=== PATIENT | female | born 1930 | race Caucasian/White ===

== ENCOUNTER 2017-09-22 05:47 | Inpatient (IN) | payer MEDICARE, OTHER ==
[~2017-09-22] VITALS: Ht 162.6 cm; Wt 60.8 kg
[~2017-09-22 05:47] MED LIST: ADULT LOW DOSE81 MG PO; AMARYL2 MG PO; AMBIEN 5 MG TABL5 M1; AMBIEN 5 MG TABL5 M1 PO; APAP650 PO; ASPIR 8181 MG PO; ATORVASTATIN CA40 MG PO; BACTRIM DS TAB1 EACH PO; CARDIZEM CD180 MG PO; CARVEDILOL12.5 MG PO; CLONAZEPAM PO; COLESTID1 GM PO; COREG PO; COREG25 MG PO; COREG6.25 MG PO; ENOXAPARIN40 MG/0.1 SUBQ; FENOFIBRATE134 MG PO; FISH OIL 1,0001 EAC5 PO; FLONASE 0.05%50 MCG NASAL; GLUCOPHAGE500 MG PO; GLUCOSAMINE SU500 MG PO; KLOR-CON PO; LIPITOR 20 MG T20 M1 PO; MAGOX 400400 MG PO; NORCO 5-325 TA1 EACH PO; OMEPRAZOLE 20 M20 MG PO; PAXIL10 MG PO; POTASSIUM20 PO; PRAVASTATIN SOD20 MG PO; PREDNISONE 10 M10 MG PO; PREVACID 30MG C30 M1 PO; PREVACID30 MG PO; UNICOMPLEX M TA1 TA1 PO
[2017-09-22 05:53] VITALS: BP 193/109
[2017-09-22 06:25] LABS: ABSOLUTE EOSINOPHILS 0.1 thou/uL (0.0-0.7); ABSOLUTE LYMPHOCYTES 1.7 thou/uL (0.8-5.3); ABSOLUTE MONOCYTES 0.7 thou/uL (0.0-1.2); BASOPHILS 0.5 %; EOSINOPHILS 1.8 %; HEMATOCRIT 46.6 % (37.0-47.0); HEMOGLOBIN 15.2 gm/dL (12.0-15.0); MCH 27.4 pg (26.0-34.0); MCHC 32.6 g/dL (28.0-37.0); MONOCYTES 10.5 %; MPV 7.6 fl. (7.2-11.1); NUCLEATED RBCS 0 /100WBC; PLATELET COUNT* 163 thou/uL (150-400); POLYS 61.2 %; RBC 5.55 mil/uL (4.20-5.00); RDW-CV 16.9 % (10.5-14.5); WBC 6.5 thou/uL (4.0-11.0)
[2017-09-22 06:29] LABS: ANION GAP 7 mmol/L (7-16); BUN 20 mg/dL (7-18); CALCIUM 9.1 mg/dL (8.5-10.1); CHLORIDE 104 mmol/L (98-107); CO2 31 mmol/L (21-32); CREATININE 0.6 mg/dL (0.6-1.3); GLUCOSE 124 mg/dL (70-99); SODIUM 142 mmol/L (136-145)
[2017-09-22 06:31] LABS: APTT 23.9 Seconds (25.0-31.3); INR 1.1
[2017-09-22 06:40] LABS: ALKALINE PHOSPHATASE 52 U/L (46-116); LIPASE 329 U/L (73-393); NT-PRO BRAIN NAT PEPTIDE 1412 pg/mL (<300); SGOT 20 U/L (15-37); SGPT 32 U/L (30-65); TOTAL BILIRUBIN 0.5 mg/dL (<0.1-1.0); TOTAL PROTEIN 6.2 g/dL (6.4-8.2); TROPONIN-I LEVEL <0.06 ng/mL (<0.06)
[2017-09-22 09:49] VITALS: BP 153/88
--- NOTE | 2017-09-22 11:27 | NUR ---
CM SPOKE TO THE PATIENT TO DISCUSS HOME SITUATION, DISCHARGE PLANNING, AND TO INFORM OF THE ROLE OF CM. PATIENT ALERT, ORIENTED, AND INDPENDENT WITH ADL'S. PATIENT RESIDES AT HOME ALONE. PATIENT INFORMS THAT HER DTR'S RESIDE A FEW MINUTES FROM HER AND ARE SUPPORTIVE AND INVOLVED. PATIENT OWNS A WALKER AND A CANE, BUT DOES NOT USE THEM FOR MOBILITY. PATIENT HAS NO HX OF HH OR SNF. PATIENT HOPEFUL TO RETURN HOME TOMORROW, AND DOES NOT ANTICIPATE ANY DISCHARGE PLANNING NEEDS. CM WILL REMAIN AVAILABLE TO ASSIST AND FOLLOW NEEDED.
[2017-09-22 11:30] VITALS: BP 147/76
--- NOTE | 2017-09-22 11:30 | NUR ---
PT UP ROOM 311. PT ORIENTED TO ROOM,CALL LIGHT WITHIN REACH. FAMILY AT BS
--- NOTE | 2017-09-22 11:33 | EKG ---
[place] [address] ELECTROCARDIOGRAM REPORT Name: STEFFANIE YIN Room: [address] IN .R.#: [id number] Admission: 09/22/17 Attend Phys: Tejas Zuñiga Discharge: Date of : 32 Report #: [id number] THIS REPORT FOR: //name// [facility] ED Test Date: 2017-09-22 Test Time: 05:53:33 Pat Name: STEFFANIE BELTREUER Department: Room: Gender: F String Cutter: : 1930 Requested By: Rena Wang Order Number: [id number] MD: Jose Brown Measurements Intervals [place] Rate: 96 P: DE: QRS: -58 QRSD: 97 T: 72 QT: 351 QTc: 444 Interpretive Statements Atrial fibrillation Left ventricular hypertrophy Inferior infarct, old Anterior infarct, old Baseline wander in lead(s) II,III,aVF Compared to ECG 12/20/2016 05:41:32 incomplete RIGHT BUNDLE BRANCH BLOCK not seen Electronically Signed On 09-22-2017 11:32:52 CDT by Jose Brown [email or web address] <ELECTRONICALLY SIGNED> By: Jose Brown MD, [facility] 09/22/17 1132 [id number] [id number] Jose Brown MD, [facility] /EPI
[2017-09-22 12:15] VITALS: BP 147/76
--- NOTE | 2017-09-22 15:45 | NUR ---
PT AFIB WITH RVR IN 160S WHEN UP TO BR. ASYMPTOMATIC. DR MAYFIELD NOTIFIED. NO NEW ORDERS RECEIVED.
[2017-09-22 15:53] VITALS: BP 119/84
[2017-09-22 19:36] VITALS: BP 151/72
[2017-09-23 00:35] VITALS: BP 110/71
[2017-09-23 04:22] VITALS: BP 128/64
--- NOTE | 2017-09-23 06:09 | NUR ---
ASSESSMENT COMPLETE. PT SLEPT MOST OF THE NIGHT. PT GIVEN PRN MELATONIN TO HELP WITH INSOMNIA. PT ON TELE MONITOR THOUGH THE NIGHT. PT IS ON ROOM AIR WITH ADEQAUTE SATS. PT DENIES SOA. PT DENIES PAIN. PT UP AD CHAZ WITH STEADY GAIT. IV IN RIGHT AC, SALINE LOCKED. ACCUCHECK 348 AT HS, SLIDING SCALE STARTED. SEE ASSESSMENT AND VITALS FOR OTHER DETAILS. CALL LIGHT WITHIN REACH, WILL CONTINUE PLAN OF CARE
[2017-09-23 08:00] VITALS: BP 117/58
[2017-09-23] MEDS ORDERED: PREDNISONE 10 M10 MG PO (11:25)
[2017-09-23 12:00] VITALS: BP 111/51
[2017-09-23 16:00] VITALS: BP 109/61
--- NOTE | 2017-09-23 16:18 | CON ---
[address] [address] CONSULTATION Name: STEFFANIE YIN Room: [address] IN M.R.#: [id number] Admission: 09/22/17 Attend Phys: Tejas Zuñiga Discharge: Date of : 32 Report #: [id number] THIS REPORT FOR: //name// CC: Marco Jacome DATE OF SERVICE: 09/22/2017 HISTORY OF PRESENT ILLNESS: The patient is an 87-year-old single white female who I was asked to see in the hospital after she complained of being short of breath. The patient has an extensive past medical history. Unfortunately, not a lot of her old record is available. She had a history of a heart murmur and eventually underwent aortic valve replacement using a porcine valve and triple vessel bypass surgery at in [address] Concepcion. She has been followed by my partner, Dr. Cheatham, since that time. She does have history of atrial fibrillation, but was never cardioverted. She has a history of GI bleeding where apparently upper and lower endoscopy showed no source of bleeding. She has never been anticoagulated. She does have chronic dyspnea on exertion. She has not seen Dr. Cheatham' nurse practitioner for the past year. She was actually admitted here to [place] in 11/2016 with chest pain. Her pain was felt to be atypical for angina. She did undergo nuclear stress test last November using Lexiscan that showed the following results: There was normal perfusion at rest and a stress with an ejection fraction of 64%. This was felt to be a low-risk study. She underwent an echocardiogram last November that showed left ventricular hypertrophy, ejection fraction 60%, biatrial enlargement, evidence of a prosthetic aortic valve with no significant valve regurgitation or stenosis. The patient is not very active because of her age. She ambulates with a cane. Recently, she has noticed increasing shortness of breath. She finally had her daughter bring her to the Emergency Room this morning. Her blood pressure is elevated. She is admitted for further evaluation and treatment. She does note occasional chest pressure. In fact, she states she is having it now. It is not related to activity or meals. There is no radiation of the pain. She has had no recent bleeding, fever. She has no calf swelling of her legs. She notes occasional skipped heartbeat, but no syncope. PAST MEDICAL HISTORY: Significant for appendectomy, mastectomy for breast cancer, cholecystectomy, hysterectomy, leg fracture, hypertension, diabetes, hyperlipidemia. MEDICATIONS: Consist of glimepiride, carvedilol, diltiazem, omeprazole, Paxil, Lipitor, aspirin. ALLERGIES: She has no known drug allergies. FAMILY HISTORY: [place] [address] CONSULTATION Name: STEFFANIE YIN Room: [address] IN [facility]#: [id number] Admission: 09/22/17 Attend Phys: Tejas Zuñiga Discharge: Date of : 31 Report #: [id number] SOCIAL HISTORY: She is , lives in [place], [place] by herself. She has no history of smoking or alcohol abuse. REVIEW OF SYSTEMS: She has had no history of stroke, asthma, peptic ulcer disease, liver disease, kidney disease. She has had a skin cancer removed in the past. No chronic skin condition. PHYSICAL EXAMINATION: GENERAL: Revealed an elderly female lying in bed. She appeared in no distress. VITAL SIGNS: Her blood pressure was initially 180/100, pulse was 80, she is afebrile. HEENT: She was anicteric, conjunctiva pink. Mucous membranes moist. NECK: Veins nondistended. No carotid bruits. CHEST: Clear to auscultation. CARDIAC: Irregular rhythm with grade 2 systolic ejection murmur. ABDOMEN: Soft. EXTREMITIES: Had no edema. Dorsalis pedis pulse 2+ bilaterally. SKIN: Cool and dry. NEUROLOGIC: Nonfocal. LABORATORY DATA: Her ECG showed atrial fibrillation, left ventricular hypertrophy, repolarization changes, evidence of previous inferior infarction. Her lab work, sodium 142, creatinine 0.6. Liver enzymes were normal. Troponin 0.06. BNP 1412. Her white blood cell count is 6.5, hemoglobin 15.2. She had a chest x-ray in the Emergency Room today that showed cardiomegaly, no infiltrates or edema. IMPRESSION AND RECOMMENDATIONS: 1. Shortness of breath. Reason unclear. Suspect secondary to exercise intolerance. The patient had an extensive cardiac workup last November. I would not recommend repeating at this time. 2. Chest pain. No evidence of acute myocardial infarction. Nuclear stress test last November showed no ischemia. I would not repeat at this time. 3. Previous coronary bypass surgery. I would continue aspirin 81 mg a day. 4. Previous aortic valve replacement using a tissue valve. I would recommend SBE prophylaxis. 5. Hypertension. The patient is on a beta drake, calcium drake. Because of vascular disease, I would consider adding an TASIA inhibitor. 6. Hyperlipidemia. The patient is on a statin drug. 7. History of breast cancer. 8. Chronic back pain. The patient had an epidural several weeks ago. <ELECTRONICALLY SIGNED> By: Jose Brown MD, [facility] 09/23/17 1618 [id number] [id number] Zaira Brown MD, LINDA /nt
[2017-09-23] MEDS ORDERED: COZAAR 25 MG TA25 MG PO (16:24)
[2017-09-23 16:33] VITALS: BP 111/51
--- NOTE | 2017-09-23 17:04 | NUR ---
PATIENT A&OX4, ROOM AIR, IV RIGHT AC SALINE LOCK. UP AD CHAZ, STEADY GIAT. WALKED AROUND NURSES STATION SEVERAL TIMES TODAY. NO C/O PAIN/N/V. PATIENT DISCHARGED TODAY. NEW PRESCRIPTIONS GIVEN. REVIEWED PAPERWORK, VERBALIZES UNDERSTANDING, ALL QUESTIONS AND CONCERNS ANSWERED. NO FURTHER QUESTIONS AT THIS TIME. PATIENT LEFT UNIT AT 1700 AMBULATORY WITH NURSES AIDE AND DAUGHTER. ALL BELONGINGS TAKEN WITH PATIENT, NOTHING LEFT BEHIND. APPROPRAITE AND COOPORATIVE WITH CARE.
== END 2017-09-23 17:37 | disposition home or self-care (01) | DRG 865 ==
LOC: M.ERS 05:47 → M.3W 08:33 → M.TBA-ER 08:33 → M.3W 10:00
PROVIDERS: Personal Emergency Response Attendant; ADMIT Internal Medicine
DX: B34.9 Viral infection, unspecified (principal); I50.31 Acute diastolic (congestive) heart failure; I16.1 Hypertensive emergency; E44.0 Moderate protein-calorie malnutrition; I10 Essential (primary) hypertension; E11.9 Type 2 diabetes mellitus without complications; E78.5 Hyperlipidemia, unspecified; G89.29 Other chronic pain; M54.9 Dorsalgia, unspecified; J98.01 Acute bronchospasm; I11.0 Hypertensive heart disease with heart failure; I48.91 Unspecified atrial fibrillation; Z79.01 Long term (current) use of anticoagulants; Z90.12 Acquired absence of left breast and nipple; Z95.1 Presence of aortocoronary bypass graft; Z95.2 Presence of prosthetic heart valve; Z91.02 Food additives allergy status; Z85.3 Personal history of malignant neoplasm of breast; Z90.49 Acquired absence of other specified parts of digestive tract; Z90.710 Acquired absence of both cervix and uterus; Z79.2 Long term (current) use of antibiotics; Z79.82 Long term (current) use of aspirin; Z79.899 Other long term (current) drug therapy; Z82.49 Family history of ischemic heart disease and other diseases of the circulatory system

== ENCOUNTER → 2017-11-05 | Outpatient (CLI) | payer MEDICARE, OTHER ==
[~2017-11-05] MED LIST changes: +COZAAR 25 MG TA25 MG PO; +LASIX 20 MG TAB20 MG; +PREDNISONE 5 MG5 M1
--- NOTE | 2017-11-05 11:50 | 2DMMODE ---
[place] [address] 2 D/M-MODE ECHOCARDIOGRAM Name: STEFFANIE YIN Room: [facility]#: [id number] Admission: 11/05/17 Attend Phys: Ivana Yu, Discharge: Date of : 32 Date of Service: 11/05/17 1150 Report #: [id number] THIS REPORT FOR: //name// APPROVED REPORT Study performed: 11/05/2017 09:16:04 EXAM: Comprehensive 2D, Doppler, and color-flow Echocardiogram Patient Location: Out-Patient Status: routine BSA: 1.65 HR: 85 bpm BP: 129/79 mmHg Other Information Study Quality: Good Indications Aortic Valve Disease Atrial Fibrillation CAD Hypertension/HDD Aortic valve replacement 2D Dimensions LVEF(%): 58.21 (>50%) IVSd: 16.81 (7-11mm) LVOT Diam: 21.97 (18-24mm) LVDd: 31.32 mm PWd: 15.24 (7-11mm) Ascending Ao: 34.35 (22-36mm) LVDs: 22.02 (25-40mm) Aortic Root: 30.73 mm Toussaint's LVEF: 58.21 % Volumes Left Atrial Volume (Systole) LA ESV Index: 18.60 mL/m2 Aortic Valve AoV Peak Lee.: 1.87 m/s AO Peak Gr.: 13.99 mmHg LVOT Max P.96 mmHg AO Mean Gr.: 8.25 mmHg LVOT Mean P.07 mmHg LVOT Max V: 0.70 m/s AO V2 VTI: 32.10 cm LVOT Mean V: 0.48 m/s SCOTTY (VTI): 1.63 cm2 LVOT V1 VTI: 13.83 [place] [address] 2 D/M-MODE ECHOCARDIOGRAM Name: STEFFANIE YIN Room: [facility]#: [id number] Admission: 11/05/17 Attend Phys: Ivana Yu, Discharge: Date of : 31 Date of Service: 11/05/17 1150 Report #: [id number] Mitral Valve MV Decel. Time: 275.07 ms MV PHT: 79.77 ms MVA (PHT): 2.76 cm2 TDI Medial E' Lee.: 0.09 m/s Lateral E' Lee.: 0.11 m/s Pulmonary Valve PV Peak Lee.: 0.92 m/s PV Peak Gr.: 3.36 mmHg Tricuspid Valve RAP Estimate: 5.00 mmHg TR Peak Gr.: 24.14 mmHg RVSP: 29.14 mmHg PA Pressure: 29.14 mmHg Left Ventricle The left ventricle is normal size. There is normal LV segmental wall motion. Mild concentric left ventricular hypertrophy. Left ventricular systolic function is normal. The left ventricular ejection fraction is within the normal range. LVEF is 60-65%. The left ventricular diastolic function is normal. Right Ventricle The right ventricle is normal size. The right ventricular systolic function is normal. Atria The left atrium size is normal. The right atrium size is normal. Aortic Valve Bioprosthetic aortic valve is present. No aortic regurgitation is present. There is no aortic valvular stenosis. Mitral Valve Mitral valve leaflets are mildly thickened.mitral annular calcification. Trace mitral regurgitation. No evidence of mitral valve stenosis. Tricuspid Valve The tricuspid valve is normal in structure. [place] [address] 2 D/M-MODE ECHOCARDIOGRAM Name: STEFFANIE YIN Room: [facility]#: [id number] Admission: 11/05/17 Attend Phys: Ivana Yu, Discharge: Date of : 32 Date of Service: 11/05/17 1150 Report #: [id number] Pulmonic Valve The pulmonary valve is normal in structure. Mild pulmonic regurgitation. Great Vessels The aortic root is normal in size. IVC is normal in size and collapses with >50% inspiration Pericardium There is no pericardial effusion. <Conclusion> Mild concentric left ventricular hypertrophy. LVEF is 60-65%. Bioprosthetic aortic valve is present. <ELECTRONICALLY SIGNED> By: Jose Brown MD, [facility] 11/05/17 1150 1150 1150 Jose Brown MD, [facility] /INF
== END ==
LOC: M.CRD 08:29
DX: I37.1 Nonrheumatic pulmonary valve insufficiency (principal); I34.8 Other nonrheumatic mitral valve disorders; I25.10 Atherosclerotic heart disease of native coronary artery without angina pectoris; I11.9 Hypertensive heart disease without heart failure; I48.91 Unspecified atrial fibrillation; Z95.3 Presence of xenogenic heart valve

== ENCOUNTER 2018-01-22 05:50 | Emergency (ER) | payer MEDICARE, OTHER ==
[~2018-01-22] VITALS: Ht 162.6 cm; Wt 62.6 kg
[~2018-01-22 05:50] MED LIST changes: -LASIX 20 MG TAB20 MG; -PREDNISONE 5 MG5 M1
[2018-01-22] MEDS ORDERED: LASIX 20 MG TAB20 MG (06:08)
[2018-01-22] MEDS ORDERED: PREDNISONE 5 MG5 M1 (06:08)
[2018-01-22 06:38] LABS: ABSOLUTE EOSINOPHILS 0.1 thou/uL (0.0-0.7); ABSOLUTE LYMPHOCYTES 1.1 thou/uL (0.8-5.3); ABSOLUTE MONOCYTES 0.8 thou/uL (0.0-1.2); ABSOLUTE NEUTROPHILS 5.4 thou/uL (1.6-8.1); BASOPHILS 0.6 %; EOSINOPHILS 0.7 %; HEMATOCRIT 41.7 % (37.0-47.0); HEMOGLOBIN 13.7 gm/dL (12.0-15.0); LYMPHOCYTES 15.1 %; MCH 28.1 pg (26.0-34.0); MCHC 32.9 g/dL (28.0-37.0); MCV 85.4 fL (80.0-100.0); MONOCYTES 10.5 %; MPV 7.4 fl. (7.2-11.1); NUCLEATED RBCS 0 /100WBC; PLATELET COUNT* 212 thou/uL (150-400); POLYS 73.1 %; RBC 4.88 mil/uL (4.20-5.00); RDW-CV 14.3 % (10.5-14.5); WBC 7.4 thou/uL (4.0-11.0)
[2018-01-22 06:46] LABS: CALCIUM 8.7 mg/dL (8.5-10.1); CREATININE 0.6 mg/dL (0.6-1.3)
[2018-01-22 06:50] LABS: ALBUMIN 3.1 g/dL (3.4-5.0); TOTAL BILIRUBIN 0.8 mg/dL (<0.1-1.0)
[2018-01-22 07:31] VITALS: BP 136/70
== END 2018-01-22 07:47 | disposition home or self-care (01) ==
LOC: M.ERS 05:50
PROVIDERS: Personal Emergency Response Attendant
DX: S00.83XA Contusion of other part of head, initial encounter (principal); S10.83XA Contusion of other specified part of neck, initial encounter; S69.81XA Other specified injuries of right wrist, hand and finger(s), initial encounter; I10 Essential (primary) hypertension; I48.91 Unspecified atrial fibrillation; Z91.018 Allergy to other foods; W18.39XA Other fall on same level, initial encounter; Y93.89 Activity, other specified; Y92.89 Other specified places as the place of occurrence of the external cause; Y99.8 Other external cause status

== ENCOUNTER → 2018-03-27 | Outpatient (CLI) | payer MEDICARE, OTHER ==
[~2018-03-27] MED LIST changes: +LASIX 20 MG TAB20 MG; +PREDNISONE 5 MG5 M1
[2018-03-27 08:58] LABS: CALCIUM 8.5 mg/dL (8.5-10.1); CREATININE 0.9 mg/dL (0.6-1.3); POTASSIUM 4.3 mmol/L (3.5-5.1)
== END ==
LOC: M.LAB 08:10
PROVIDERS: Nurse Practitioner
DX: I12.9 Hypertensive chronic kidney disease with stage 1 through stage 4 chronic kidney disease, or unspecified chronic kidney disease (principal); E11.22 Type 2 diabetes mellitus with diabetic chronic kidney disease; N18.3 Chronic kidney disease, stage 3 (moderate); M79.89 Other specified soft tissue disorders

== ENCOUNTER → 2018-04-11 | Outpatient (CLI) | payer MEDICARE, OTHER ==
[2018-04-11 08:50] LABS: CREATININE 0.8 mg/dL (0.6-1.3); POTASSIUM 4.3 mmol/L (3.5-5.1)
== END ==
LOC: M.LAB 08:15
PROVIDERS: Nurse Practitioner
DX: I10 Essential (primary) hypertension (principal)

== ENCOUNTER → 2018-07-09 | Outpatient (CLI) | payer MEDICARE, OTHER | LOC: M.WC 07:55 | DX: E11.622 Type 2 diabetes mellitus with other skin ulcer (principal); L97.811 Non-pressure chronic ulcer of other part of right lower leg limited to breakdown of skin; L97.821 Non-pressure chronic ulcer of other part of left lower leg limited to breakdown of skin; I87.2 Venous insufficiency (chronic) (peripheral); I89.0 Lymphedema, not elsewhere classified; I11.0 Hypertensive heart disease with heart failure; I50.42 Chronic combined systolic (congestive) and diastolic (congestive) heart failure; I48.91 Unspecified atrial fibrillation; I25.10 Atherosclerotic heart disease of native coronary artery without angina pectoris; K21.9 Gastro-esophageal reflux disease without esophagitis; F41.9 Anxiety disorder, unspecified; F32.9 Major depressive disorder, single episode, unspecified; Z95.4 Presence of other heart-valve replacement; Z95.1 Presence of aortocoronary bypass graft; Z90.710 Acquired absence of both cervix and uterus; Z90.49 Acquired absence of other specified parts of digestive tract; Z79.82 Long term (current) use of aspirin ==

== ENCOUNTER → 2018-07-16 | Outpatient (CLI) | payer MEDICARE, OTHER | LOC: M.WC 04:43 | DX: L97.811 Non-pressure chronic ulcer of other part of right lower leg limited to breakdown of skin (principal); I87.2 Venous insufficiency (chronic) (peripheral); I89.0 Lymphedema, not elsewhere classified; I11.0 Hypertensive heart disease with heart failure; I50.42 Chronic combined systolic (congestive) and diastolic (congestive) heart failure; I48.91 Unspecified atrial fibrillation; I25.10 Atherosclerotic heart disease of native coronary artery without angina pectoris; K21.9 Gastro-esophageal reflux disease without esophagitis; F41.9 Anxiety disorder, unspecified; F32.9 Major depressive disorder, single episode, unspecified; Z95.4 Presence of other heart-valve replacement ==

== ENCOUNTER → 2018-07-23 | Outpatient (CLI) | payer MEDICARE, OTHER | LOC: M.WC 05:34 | DX: E11.622 Type 2 diabetes mellitus with other skin ulcer (principal); L97.818 Non-pressure chronic ulcer of other part of right lower leg with other specified severity; I87.2 Venous insufficiency (chronic) (peripheral); I89.0 Lymphedema, not elsewhere classified; I11.0 Hypertensive heart disease with heart failure; I50.42 Chronic combined systolic (congestive) and diastolic (congestive) heart failure; I48.91 Unspecified atrial fibrillation; I25.10 Atherosclerotic heart disease of native coronary artery without angina pectoris; K21.9 Gastro-esophageal reflux disease without esophagitis; F41.9 Anxiety disorder, unspecified; F32.9 Major depressive disorder, single episode, unspecified; Z95.1 Presence of aortocoronary bypass graft; Z95.4 Presence of other heart-valve replacement ==

== ENCOUNTER → 2018-09-26 | Outpatient (CLI) | payer MEDICARE, OTHER | LOC: M.WC 07:53 | DX: L97.221 Non-pressure chronic ulcer of left calf limited to breakdown of skin (principal); I11.0 Hypertensive heart disease with heart failure; I50.42 Chronic combined systolic (congestive) and diastolic (congestive) heart failure; I48.91 Unspecified atrial fibrillation; I25.10 Atherosclerotic heart disease of native coronary artery without angina pectoris; I89.0 Lymphedema, not elsewhere classified; K21.9 Gastro-esophageal reflux disease without esophagitis; F41.9 Anxiety disorder, unspecified; F32.9 Major depressive disorder, single episode, unspecified; Z95.4 Presence of other heart-valve replacement; Z90.710 Acquired absence of both cervix and uterus; Z90.49 Acquired absence of other specified parts of digestive tract ==

== ENCOUNTER → 2018-10-03 | Outpatient (CLI) | payer MEDICARE, OTHER | LOC: M.WC 04:59 | DX: L97.221 Non-pressure chronic ulcer of left calf limited to breakdown of skin (principal); I89.0 Lymphedema, not elsewhere classified; I11.0 Hypertensive heart disease with heart failure; I50.42 Chronic combined systolic (congestive) and diastolic (congestive) heart failure; I48.91 Unspecified atrial fibrillation; I25.10 Atherosclerotic heart disease of native coronary artery without angina pectoris; K21.9 Gastro-esophageal reflux disease without esophagitis; F41.9 Anxiety disorder, unspecified; F32.9 Major depressive disorder, single episode, unspecified; Z95.4 Presence of other heart-valve replacement ==

== ENCOUNTER → 2018-10-11 | Outpatient (CLI) | payer MEDICARE, OTHER | LOC: M.WC 10-10 08:00 | DX: L97.228 Non-pressure chronic ulcer of left calf with other specified severity (principal); I89.0 Lymphedema, not elsewhere classified; I87.2 Venous insufficiency (chronic) (peripheral); I11.0 Hypertensive heart disease with heart failure; I50.42 Chronic combined systolic (congestive) and diastolic (congestive) heart failure; I48.91 Unspecified atrial fibrillation; I25.10 Atherosclerotic heart disease of native coronary artery without angina pectoris; K21.9 Gastro-esophageal reflux disease without esophagitis; F41.9 Anxiety disorder, unspecified; F32.9 Major depressive disorder, single episode, unspecified; Z95.4 Presence of other heart-valve replacement ==

== ENCOUNTER 2018-11-21 19:52 | Inpatient (IN) | payer MEDICARE, OTHER ==
[~2018-11-21] VITALS: Ht 162.6 cm; Wt 62.0 kg
[~2018-11-21 19:52] MED LIST changes: -LASIX 20 MG TAB20 MG; +LASIX 20 MG TAB20 MG PO; +OMEPRAZOLE 20 M20 M1 PO; -OMEPRAZOLE 20 M20 MG PO; -PREDNISONE 5 MG5 M1; +PREDNISONE 5 MG5 M1 PO
[2018-11-21 19:59] VITALS: BP 136/67
[2018-11-21 20:29] LABS: ABSOLUTE EOSINOPHILS 0.1 thou/uL (0.0-0.7); ABSOLUTE LYMPHOCYTES 1.1 thou/uL (0.8-5.3); ABSOLUTE MONOCYTES 0.6 thou/uL (0.0-1.2); ABSOLUTE NEUTROPHILS 3.7 thou/uL (1.6-8.1); BASOPHILS 0.7 %; EOSINOPHILS 1.4 %; HEMATOCRIT 43.8 % (37.0-47.0); HEMOGLOBIN 14.4 gm/dL (12.0-15.0); LYMPHOCYTES 20.5 %; MCH 27.9 pg (26.0-34.0); MCHC 32.9 g/dL (28.0-37.0); MCV 84.8 fL (80.0-100.0); MONOCYTES 11.2 %; MPV 7.5 fl. (7.2-11.1); NUCLEATED RBCS 0 /100WBC; PLATELET COUNT* 182 thou/uL (150-400); POLYS 66.2 %; RBC 5.17 mil/uL (4.20-5.00); RDW-CV 16.2 % (10.5-14.5); WBC 5.5 thou/uL (4.0-11.0)
[2018-11-21 20:37] LABS: INR 1.1; PROTIME 11.1 Seconds (9.20-11.50)
[2018-11-21 20:48] LABS: ANION GAP 3 mmol/L (7-16); BUN 28 mg/dL (7-18); CHLORIDE 102 mmol/L (98-107); CO2 38 mmol/L (21-32); CREATININE 0.8 mg/dL (0.6-1.3); GLUCOSE 164 mg/dL (70-99); POTASSIUM 4.3 mmol/L (3.5-5.1); SODIUM 143 mmol/L (136-145)
[2018-11-21 20:52] LABS: ALBUMIN 2.8 g/dL (3.4-5.0); ALKALINE PHOSPHATASE 57 U/L (46-116); LIPASE 259 U/L (73-393); MAGNESIUM 1.9 mg/dL (1.8-2.4); NT-PRO BRAIN NAT PEPTIDE 4386 pg/mL (<300); SGOT 37 U/L (15-37); SGPT 51 U/L (30-65); TOTAL BILIRUBIN 0.8 mg/dL (<0.1-1.0); TOTAL PROTEIN 5.7 g/dL (6.4-8.2); TROPONIN-I LEVEL <0.06 ng/mL (<0.06)
[2018-11-21 23:50] VITALS: BP 107/68
[2018-11-22] VITALS (63 sets, daily range): BP systolic 86–143; BP diastolic 35–103
--- NOTE | 2018-11-22 05:52 | NUR ---
PT ADMITTED TO ROOM 223; VSS, OX4 BUT DROWSY, 3LO2 NC, WOUNDS-PICS TAKEN AND IN CHART, WANDA GTT RUNNING-A. FIB. SHE IS ABLE TO COMMUNICATE HER NEEDS TO STAFF WITH SOME DIFFICULTY; SHE IS VERY SLEEPY AND DROWSY, BUT ARROUSABLE FOR SHORT PERIODS OF TIME. SHE HAS DENIED THE NEED FOR PAIN MEDICATION UP TO THIS TIME. SHE IS NPO FOR A CARDIOLOGY CONSULT TODAY.
--- NOTE | 2018-11-22 06:27 | NUR ---
PT FOUND TO BE UNRESPONSIVE. SEVERAL ATTEMPS WERE MADE TO WAKE THE PT. VSS WERE STABLE, BUT DUE TO UNRESPONSIVE NATURE OF THE PT THE DECISION WAS MADE TO CONTACT THE MD GEOLOGICAL TECHNICAL OFFICER. MD RESPONDED WITH STAT ORDERS WHICH WERE ENTERED AND IMPLEMENTED. ABG RESULTS CAME BACK SIGNIFICANTLY ABNORMAL, THE MD WAS INFORMED AND GAVE THE ORDER FOR THE PT TO BE BAGGED UNTIL SUCH TIME A TUBE COULD BE PLACED FOR HER TO BE ON A VENTILATOR. RT WAS INFORMED OF THE ORDER AND WENT TO BAG THE PT STRAIGHT AWAY. MD ALSO ORDERED A DOSE OF NARCAN TO BE GIVEN, PRIOR TO THE ABGs BEING DRAWN. NARCAN WAS GIVEN WITH THE RESULT BEING NO OBSERVABLE IMPROVEMENT TO PT'S MENTAL STATUS. A RAPID RESPONSE WAS CALLED AND SEVERAL RNs AND MDs WERE PRESENT TO ASSIST IN THE PT'S CARE...PT WAS EVENTUALLY TRANSFERED TO ICU ON A VENTILATOR.
[2018-11-22 07:24] LABS: ABSOLUTE LYMPHOCYTES 0.8 thou/uL (0.8-5.3); ABSOLUTE MONOCYTES 1.1 thou/uL (0.0-1.2); ABSOLUTE NEUTROPHILS 6.4 thou/uL (1.6-8.1); BASOPHILS 0.3 %; EOSINOPHILS 0.2 %; HEMATOCRIT 48.3 % (37.0-47.0); HEMOGLOBIN 15.4 gm/dL (12.0-15.0); LYMPHOCYTES 9.3 %; MCH 28.2 pg (26.0-34.0); MCHC 31.9 g/dL (28.0-37.0); MCV 88.2 fL (80.0-100.0); MONOCYTES 12.9 %; MPV 7.5 fl. (7.2-11.1); NUCLEATED RBCS 0 /100WBC; PLATELET COUNT* 231 thou/uL (150-400); POLYS 77.3 %; RBC 5.48 mil/uL (4.20-5.00); RDW-CV 16.6 % (10.5-14.5); WBC 8.3 thou/uL (4.0-11.0)
[2018-11-22 07:31] LABS: CALCIUM 8.9 mg/dL (8.5-10.1); CREATININE 1.1 mg/dL (0.6-1.3)
[2018-11-22 07:32] LABS: BE 5.8 mmol/L (-2 to +3); PO2 95.5 mmHg (75.0-100.0)
[2018-11-22 07:35] LABS: pH 7.026 (7.340-7.450)
[2018-11-22 07:36] LABS: PCO2 > 163.4 mmHg (35.0-45.0)
[2018-11-22 07:37] LABS: AMP/METHAMP Negative (Negative); BARBITURATES Negative (Negative); BENZODIAZEPINES Negative (Negative); COCAINE Negative (Negative); METHADONE Negative (Negative); OPIATES Negative (Negative); PCP Negative (Negative); THC Negative (Negative)
[2018-11-22 10:13] LABS: BE 7.8 mmol/L (-2 to +3); PO2 99.6 mmHg (75.0-100.0); pH 7.417 (7.340-7.450)
[2018-11-22 10:19] LABS: PCO2 54.2 mmHg (35.0-45.0)
--- NOTE | 2018-11-22 11:33 | NUR ---
Nutrition: Consult received for wounds. RD will order Alli to aid in wound healing. Albumin 2.8, prealb 21.7, BG 181. Currently NPO. Wt: 142#. Admmitted with chest pain. Please provide Alli once diet advances. Consider Mild risk at this time.
--- NOTE | 2018-11-22 15:03 | NUR ---
RIGHT BRACHIAL VESSEL ACCESSED FOR 5 RUSSIAN TRIPLE LUMEN PICC. LINE PRE-TRIMMED TO 38CM AND ADVAN RANDA TO THE ZERO WILBERT WITH NO RESISTANCE MET. UPPER ARM CIRCUMFERENCE ABOVE INSERTION SITE= 10". UNABLE TO DISCERN MAXIMUM P WAVES PER 3CG DUE TO A-FIB. SHERLOCK MAGNET "GHOSTING" AND UNABLE TO VISUALIZE AN SVC TIP DIRECTION. POST PROCEDURE CXR SHOWS LINE TRAVELS INTO RIGHT ATRIUM BY 3CM. LINE RETRACTED 3CM AND RESXECURED UNDER STERILE DRESSING. STYLET REMOVED LINE FLUSHED AND REPORT GIVEN TO CHRIS WILLOUGHBY.
[2018-11-22 15:55] LABS: URINE BLOOD TRACE (Negative); URINE CLARITY CLEAR; URINE COLOR YELLOW; URINE GLUCOSE-RANDOM NEGATIVE (Negative); URINE KETONES 2+ (Negative); URINE LEUKOCYTES-REFLEX TRACE (Negative); URINE NITRITE-REFLEX NEGATIVE (Negative); URINE PROTEIN NEGATIVE (Negative)
[2018-11-22 15:58] LABS: ICTOTEST (BILI CONFIRMATORY) Negative (Negative); URINE BILIRUBIN 1+ (Negative)
[2018-11-22 16:10] LABS: MUCUS None Seen strn/LPF (None Seen); SQUAMOUS 0-3 Few /LPF (0-3)
[2018-11-22 16:11] LABS: BACTERIA-REFLEX 1-9 Few /HPF (None Seen); CASTS None Seen /LPF (None Seen); CRYSTALS None Seen /LPF (None Seen); URINE RBC 3-10 Few /HPF (0-2); URINE WBC-REFLEX 0-5 Rare /HPF (0-5)
--- NOTE | 2018-11-22 19:59 | NUR ---
ASSUMED PT CARE AT 1200. PT ALERT, NODDING/SHAKING HEAD TO YES/NO QUESTIONS, AND FOLLOWING COMMANDS ON 80 MCG/MIN PROPOFOL. INTUBATED ON VENTILATOR. IVP FENTANYL Q1HR ON ORDER FOR ADDITIONAL SEDATION, MULTIPLE DOSES REQUIRED BEFORE ADEQUATE SEDATION OBTAINED. HYPOTENSIVE REQUIRING NEOSYNEPHRINE GTT, THOUGH BP IMPROVED WITH LOWER DOSE OF PROPOFOL. AMANDO GTT CHANGED TO LEVOPHED PER DR ELKINS. TOWARD END OF SHIFT LEVEL OF SEDATION IMPROVED, PROPOFOL GTT WAS GRADUALLY TITRATED DOWN TO 20 MCG/MIN AND SUBSEQUENTLY LEVO TITRATED DOWN TO 2 MCG/KG/MIN. PT NOTED TO HAVE INTERMITTENT TWITCH FOLLOWED BY BRIEF TREMORING. PT HAS BEEN TURNED Q2HR THROUGHOUT THE SHIFT.
[2018-11-23] VITALS (54 sets, daily range): BP systolic 97–150; BP diastolic 43–88
[2018-11-23 03:56] LABS: HEMATOCRIT 42.2 % (37.0-47.0); HEMOGLOBIN 13.6 gm/dL (12.0-15.0); MCH 27.5 pg (26.0-34.0); MCHC 32.2 g/dL (28.0-37.0); MCV 85.4 fL (80.0-100.0); MPV 8.1 fl. (7.2-11.1); RBC 4.94 mil/uL (4.20-5.00); RDW-CV 15.9 % (10.5-14.5); WBC 6.8 thou/uL (4.0-11.0)
[2018-11-23 04:03] LABS: CALCIUM 8.2 mg/dL (8.5-10.1); CREATININE 0.9 mg/dL (0.6-1.3); MAGNESIUM 1.5 mg/dL (1.8-2.4)
[2018-11-23 04:05] LABS: POTASSIUM 3.9 mmol/L (3.5-5.1)
[2018-11-23 05:11] LABS: BE 5.3 mmol/L (-2 to +3); pH 7.513 (7.340-7.450)
[2018-11-23 05:18] LABS: PO2 144.8 mmHg (75.0-100.0)
--- NOTE | 2018-11-23 06:42 | NUR ---
VINICIUS REMAINS SEDATED ON VENTILATOR. NOT IN RESTRAINTS. LEVOPHED WEANED DOWN TO 1, PROPOFOL AT 15. REPLACING MAGNESIUM PER PROTOCOL. PATIENT REPONSIVE TO STIMULI. ABG RESULTS CALLED TO DR BRAMBILA, ORDERS RECEIVED. WILL CONTINUE TO MONITOR.
--- NOTE | 2018-11-23 08:06 | NUR ---
WILL TITRATE OFF LEVOPHED AND COMPLETE SEDATION VACATION THIS AM. WILL CONTINUE TO ASSESS.
[2018-11-23 11:01] LABS: BE 7.4 mmol/L (-2 to +3); pH 7.398 (7.340-7.450)
[2018-11-23 11:03] LABS: PCO2 56.7 mmHg (35.0-45.0)
--- NOTE | 2018-11-23 11:18 | NUR ---
RT EXTUBATED PT AND WILL BE ON BIPAP.
--- NOTE | 2018-11-23 11:33 | NUR ---
PT EXTUBATED AT 1120 AND NOW ON BIPAP.
--- NOTE | 2018-11-23 14:39 | NUR ---
CONTACT DR. MAYFIELD ABOUT 6 BEAT RUN VTACH AND INSTRUCTED NOT TO CALL UNLESS GREATER THAN 30SECOND RUN OF VTAVH. INSTRUCTED BY DR. SUE TO GIVE 500 ML NS BOLUS.
--- NOTE | 2018-11-23 15:37 | NUR ---
PT OFF BIPAP AND ON 8L HIGHFLO NC TOLERATING WELL. INTRUCT PT ON USE OF INCENTIVE SPIROMETER AND PT ABLE TO GET TO 500ML.
--- NOTE | 2018-11-23 16:32 | NUR ---
TRY TO D BEDSIDE SWALLOW EVALUATION HOWEVER PT REFUSES. IVF RUNNING AT [facility].
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
--- NOTE | 2018-11-23 18:39 | NUR ---
INFORM DR SUE OF THAT PT ONLY HAD 300ML URINE OUTPUT VIA MÉNDEZ CATH. DR. SUE WILL ASSESS AM LABS IN THE MORNING.
[2018-11-24] VITALS (9 sets, daily range): BP systolic 113–147; BP diastolic 51–83
--- NOTE | 2018-11-24 06:54 | NUR ---
PATIENT AGITATED AND HOSTILE AT START OF SHIFT. CALMED PATIENT DOWN AND PATIENT HAS BEEN RESTING ON BIPAP ALL NIGHT. FAMILY AT BEDSIDE AROUND 2129. PATIENT STILL CONFUSED. VSS.
--- NOTE | 2018-11-24 16:57 | NUR ---
ASSUMED CARE OF PT AROUND 0730 THIS AM. REFER TO ASSESSMENT. TITRATED OFF BIPAP DURING DAY SHIFT AND PT TOLERATED. MAINTAINED SATS >92% ON 6L HFNC. PT TO WEAR BIPAP AT NIGHT. PT MORE ALERT AND ORIENTED AND CALM AND PLEASANT THAN ON PREVIOUS SHIFT. STARTED PT ON CLEAR LIQUID DIET AND ADVANCED TO CARB CONTROLLED. PT TOLERATED WELL. GOOD APPETITE. TELE REMAINS AFIB. RATE CONTROLLLED. STARTED DIGOXIN PO THIS EVENING. MÉNDEZ DC'D THIS EVENING. NO URINE OUTPUT AT THIS TIME. PT UP TO CHAIR WITH ASSIST X1 FOR MEALS. NOTED RUE WEEPING. TOWEL PLACED UNDER ARM. PT DOWNGRADED TO MED/SURG TELEMETRY STATUS. NO TELE BEDS AVAILABLE AT THIS TIME. ANTICIPATE TRANSFER TO TELE TOMORROW WHEN ROOMS AVAILABLE. NO OTHER CONCERNS AT THIS TIME. CLWR. WCTM.
[2018-11-25 00:03] VITALS: BP 123/63
[2018-11-25 04:00] VITALS: BP 121/59
[2018-11-25 05:20] LABS: HEMATOCRIT 37.3 % (37.0-47.0); HEMOGLOBIN 11.9 gm/dL (12.0-15.0); MCH 27.7 pg (26.0-34.0); MCHC 31.9 g/dL (28.0-37.0); MCV 86.9 fL (80.0-100.0); MPV 7.6 fl. (7.2-11.1); NUCLEATED RBCS 0 /100WBC; PLATELET COUNT* 138 thou/uL (150-400); RDW-CV 15.7 % (10.5-14.5)
[2018-11-25 05:26] LABS: CALCIUM 8.6 mg/dL (8.5-10.1); CREATININE 0.7 mg/dL (0.6-1.3); POTASSIUM 4.6 mmol/L (3.5-5.1)
--- NOTE | 2018-11-25 05:30 | NUR ---
ASSUMED CARE AT 1900H, ON HIGHFLOW AT 6LPM AND SHIFT TO BIPAP AT 2200H AND TOLERATED WELL.NO DISTRESS NOTED.CONTINUE MONITORING AND TOWARDS GOAL.KEPT SAFE AND FALL PRECAUTION INITIATED.
[2018-11-25 05:57] LABS: ABSOLUTE LYMPHOCYTES 0.2 thou/uL (0.8-5.3); ABSOLUTE MONOCYTES 0.1 thou/uL (0.0-1.2); ABSOLUTE NEUTROPHILS 4.8 thou/uL (1.6-8.1); ANISOCYTOSIS 1+; OVALOCYTES 1+; PLATELET ESTIMATE DECREASED; POIKILOCYTOSIS 1+
[2018-11-25 07:23] VITALS: BP 128/63
--- NOTE | 2018-11-25 10:15 | NUR ---
INT ROUNDS: ATTEMPTED TO MEET WITH PT, THERAPY IN WORKING WITH HER. PER NURSING IS TELE STATUS. DISCUSSED WITH DR BRAMBILA, MAY NEED TRILOGY AT [place]. CALLED AND FAXED CLINCIAL TO [facility]/STEPHANIE TO CHECK QUALIFIERS
[2018-11-25 13:51] VITALS: BP 153/76
--- NOTE | 2018-11-25 17:54 | NUR ---
PATIENT PROGRESSING WELL TOWARDS GOALS. WEANED DOWN ON O2, TAKEN FOR CT OF CHEST TODAY, TOLERATED WELL. TOLERATING INCREASE OF ACTIVITY WITH STAND BY ASSIST THIS SHIFT. FLUIDS INFUSING PER PULM DOCTOR ORDERS, SEE EMAR. VITALS REMAIN WNL. NO PAIN, NAUSEA OR SHORTNESS OF AIR. CALL LIGHT IN REACH. REPORT GIVEN TO JOHN WILLOUGHBY. PATIENT WILL BE TAKEN BY WHEELCHAIR TO ROOM 215 BY WHEELCHAIR. ALL BELONGINGS PACKED AND READY TO GO.
--- NOTE | 2018-11-25 17:56 | NUR ---
PATIENT SOMEWHAT PROGRESSING WELL TOWARDS GOALS. PRESSURES DROPPED A LITTLE POST THOROCENTESIS, NOTIFIED DR CRYSTAL AND MIDODRINE ORDERED. SLOWLY COMING BACK UP. ASYMPTOMATIC AT THIS TIME FOR LOW BP. MULTIPLE LOOSE BOWEL MOVEMENTS, MUCOUS LIKE. DR CRYSTAL SAID IF MORE THAN 3, SEND FOR CDIFF. TOLERATING FULL LIQUID DIET. NO PAIN, NAUSEA OR SHORTNESS OF AIR. BED IN LOWEST POSITION, CALL LIGHT IN REACH, MAT INSPECTOR IN PLACE.
[2018-11-25 20:00] VITALS: BP 146/67
[2018-11-25 23:57] VITALS: BP 106/66
[2018-11-26 05:26] VITALS: BP 141/71
[2018-11-26 08:00] VITALS: BP 111/75
--- NOTE | 2018-11-26 10:43 | NUR ---
USER EXPERIENCE TEAM LEAD FAXED SIGNED DME ORDER FOR TRILOGY, AND UPDATED DOCUMENTATION TO [facility] WITH APRIA. CM WILL REMAIN AVAILABLE TO ASSIST AND FOLLOW NEEDED.
[2018-11-26 11:46] LABS: CALCIUM 9.4 mg/dL (8.5-10.1); CREATININE 0.6 mg/dL (0.6-1.3); MAGNESIUM 1.8 mg/dL (1.8-2.4)
--- NOTE | 2018-11-26 11:59 | NUR ---
ELECTRONIC INSTRUMENT TRADES WORKER SPOKE TO THE PATIENT TO DISCUSS DISCHARGE PLANNING AND HOME WITH HH VS SNF AT D/C. PATIENT INFORMS THAT SHE WOULD LIKE TO GO TO [facility] AT D/C. PATIENT INFORMS THAT SHE HAD PREVIOUSLY BEEN TO [facility], BUT WOULD PREFER TO GO TO [facility]. D/C RELAY CHECKER SPOKE TO TAMI WITH [facility] TO INFORM OF THE REFERRAL AND FAXED PATIENT'S FACESHEET, H&P, AND PT/OT NOTES. CM WILL REMAIN AVAILABLE TO ASSIST AND FOLLOW NEEDED.
[2018-11-26 12:00] VITALS: BP 94/33
[2018-11-26 16:00] VITALS: BP 128/70
--- NOTE | 2018-11-26 19:52 | NUR ---
RECEIVED REPORT AND ASSUMED CARE AY 0700. VSS. CARDIAC MONITORING IN PLACE. PT DENIES COMPLAINTS OF PAIN. ASSESSMENT COMPLETED CHARTED. PT UP WITH ASSIST TO BSC. ON 3L NC. BED LOCKED IN LOWEST POSITION CALL LIGHT WITHIN REACH. BED ALARM ON. HOURLY ROUNDING COMPLETED AND ALL NEEDS MET.
[2018-11-26 20:20] VITALS: BP 138/67
[2018-11-27] VITALS: BP 123/76
[2018-11-27 04:00] VITALS: BP 92/46
[2018-11-27 06:12] LABS: CALCIUM 9.4 mg/dL (8.5-10.1); CREATININE 0.6 mg/dL (0.6-1.3); POTASSIUM 4.2 mmol/L (3.5-5.1)
--- NOTE | 2018-11-27 06:25 | NUR ---
PT SLEPT MOST OF SHIFT. ASSESSMENT DOCUMENTED. MEDS GIVEN PER E-MAR. PICC PATENT. NO REPORTS OF PAIN. BIPAP WORN WILL SLEEPING. WILL CONTINUE WITH PLAN OF CARE.
[2018-11-27 08:00] VITALS: BP 109/56
[2018-11-27] MEDS ORDERED: CARVEDILOL3.125 MG PO (09:47)
[2018-11-27] MEDS ORDERED: IPRAT-ALBUT 0.5-3 ML INH (09:47)
[2018-11-27] MEDS ORDERED: LANOXIN125 MCG PO (09:47)
--- NOTE | 2018-11-27 10:03 | NUR ---
Pt medically stable to dc today, updated Helen at [facility], she is to come and complete and onsite, prior to accepting Pt, she should be here shortly.
== END 2018-11-27 14:00 | DRG 208 ==
LOC: M.ERS 19:52 → M.ICU 22:13 → M.TBA-ER 22:13 → M.2W 22:13 → M.ICU 11-22 08:44 → M.2W 11-25 18:41
PROVIDERS: Emergency Medicine Emergency Medical Services; Internal Medicine; Internal Medicine Cardiovascular Disease; Internal Medicine Critical Care Medicine; Internal Medicine Pulmonary Disease; ADMIT Internal Medicine
PROC: 5A1935Z Respiratory Ventilation, Less than 24 Consecutive Hours (ICD-10-PCS; principal; 2018-11-22)
PROC: 0BH17EZ Insertion of Endotracheal Airway into Trachea, Via Natural or Artificial Opening (ICD-10-PCS; principal; 2018-11-22)
PROC: 02HV33Z Insertion of Infusion Device into Superior Vena Cava, Percutaneous Approach (ICD-10-PCS; principal; 2018-11-22)
PROC: 5A09357 Assistance with Respiratory Ventilation, Less than 24 Consecutive Hours, Continuous Positive Airway Pressure (ICD-10-PCS; 2018-11-23)
PROC: 5A09357 Assistance with Respiratory Ventilation, Less than 24 Consecutive Hours, Continuous Positive Airway Pressure (ICD-10-PCS; 2018-11-24)
PROC: 5A09357 Assistance with Respiratory Ventilation, Less than 24 Consecutive Hours, Continuous Positive Airway Pressure (ICD-10-PCS; 2018-11-26)
DX: J96.22 Acute and chronic respiratory failure with hypercapnia (principal); G92 Toxic encephalopathy; R57.0 Cardiogenic shock; I50.33 Acute on chronic diastolic (congestive) heart failure; E44.0 Moderate protein-calorie malnutrition; E87.2 Acidosis; E87.0 Hyperosmolality and hypernatremia; I13.0 Hypertensive heart and chronic kidney disease with heart failure and stage 1 through stage 4 chronic kidney disease, or unspecified chronic kidney disease; N18.3 Chronic kidney disease, stage 3 (moderate); I48.91 Unspecified atrial fibrillation; M19.90 Unspecified osteoarthritis, unspecified site; I25.10 Atherosclerotic heart disease of native coronary artery without angina pectoris; E11.22 Type 2 diabetes mellitus with diabetic chronic kidney disease; E11.65 Type 2 diabetes mellitus with hyperglycemia; I95.9 Hypotension, unspecified; J96.21 Acute and chronic respiratory failure with hypoxia; J44.9 Chronic obstructive pulmonary disease, unspecified; G47.33 Obstructive sleep apnea (adult) (pediatric); Z79.82 Long term (current) use of aspirin; Z79.899 Other long term (current) drug therapy; Z86.010 Personal history of colon polyps; Z90.12 Acquired absence of left breast and nipple; Z95.2 Presence of prosthetic heart valve; Z95.1 Presence of aortocoronary bypass graft; Z88.8 Allergy status to other drugs, medicaments and biological substances; Z87.891 Personal history of nicotine dependence; Z85.3 Personal history of malignant neoplasm of breast; Z90.49 Acquired absence of other specified parts of digestive tract; Z88.6 Allergy status to analgesic agent; Z82.49 Family history of ischemic heart disease and other diseases of the circulatory system; Z68.23 Body mass index [BMI] 23.0-23.9, adult

== ENCOUNTER → 2018-12-31 | Outpatient (CLI) | payer MEDICARE, OTHER ==
[~2018-12-31] MED LIST changes: +CARVEDILOL3.125 MG PO; +IPRAT-ALBUT 0.5-3 ML INH; +LANOXIN125 MCG PO
--- NOTE | 2019-01-07 08:09 | PF ---
[address] [address] PULMONARY FUNCTION REPORT Name: STEFFANIE YIN Room: [facility]#: [id number] Admission: 12/31/18 Attend Phys: TASHIA Mayer Discharge: Date of : 32 Report #: [id number] THIS REPORT FOR: //name// CC: Marco Hernández PULMONARY FUNCTION TEST Spirometry shows a severe obstructive defect. The patient's FEV1 was 48% of predicted, which was 59% compared to FVC. FEV1/FVC ratio as above was 59% consistent with obstructive lung disease. There was no significant reversibility with bronchodilator. The patient has decreased midflow rate as well. Lung volume shows decreased total lung capacity of 71%. The diffusion capacity was decreased at 66%. IMPRESSION: 1. Obstructive lung disease, severe, without reversibility. 2. Decreased lung volume. Clinical correlation is indicated. With associated decreased diffusion capacity, decreased lung volume may be related to extrapulmonary or intrapulmonary restriction. The patient has restrictive lung disease as well as obstructive lung disease. Obstructive lung disease is severe. Clinical correlation is indicated. <ELECTRONICALLY SIGNED> By: Ketan Kimble MD 01/07/19 0809 1548 0038[facility] Dimple Buckner MD /nt
== END ==
LOC: M.PUL 09:15
DX: J96.00 Acute respiratory failure, unspecified whether with hypoxia or hypercapnia (principal); J44.9 Chronic obstructive pulmonary disease, unspecified

== ENCOUNTER 2019-04-20 08:44 | Emergency (ER) | payer MEDICARE, OTHER ==
[~2019-04-20] VITALS: Ht 162.6 cm; Wt 54.4 kg
[2019-04-20] MEDS ORDERED: RAYOS5 MG PO (08:55)
[2019-04-20 09:37] LABS: ABSOLUTE BASOPHILS 0.1 thou/uL (0.0-0.2); ABSOLUTE EOSINOPHILS 0.1 thou/uL (0.0-0.7); ABSOLUTE LYMPHOCYTES 1.2 thou/uL (0.8-5.3); ABSOLUTE MONOCYTES 0.8 thou/uL (0.0-1.2); ABSOLUTE NEUTROPHILS 6.2 thou/uL (1.6-8.1); BASOPHILS 0.9 %; EOSINOPHILS 1.4 %; HEMATOCRIT 33.9 % (37.0-47.0); MCH 24.8 pg (26.0-34.0); MCHC 32.4 g/dL (28.0-37.0); MCV 76.5 fL (80.0-100.0); MONOCYTES 9.7 %; NUCLEATED RBCS 0 /100WBC; PLATELET COUNT* 361 thou/uL (150-400); RBC 4.43 mil/uL (4.20-5.00); RDW-CV 17.4 % (10.5-14.5); WBC 8.4 thou/uL (4.0-11.0)
[2019-04-20 09:48] LABS: CALCIUM 9.5 mg/dL (8.5-10.1); CREATININE 0.8 mg/dL (0.6-1.3); POTASSIUM 4.3 mmol/L (3.5-5.1)
[2019-04-20 09:49] LABS: INR 1.1
[2019-04-20 09:53] LABS: ALBUMIN 2.5 g/dL (3.4-5.0); TOTAL BILIRUBIN 0.6 mg/dL (<0.1-1.0); TOTAL PROTEIN 6.4 g/dL (6.4-8.2)
[2019-04-20] MEDS ORDERED: NORCO 5-325 TA1 EAC1 PO (10:42)
[2019-04-20 11:17] VITALS: BP 123/68
== END 2019-04-20 11:21 | disposition home or self-care (01) ==
LOC: M.ERS 08:44
PROVIDERS: Family Medicine
DX: S52.591A Other fractures of lower end of right radius, initial encounter for closed fracture (principal); S00.83XA Contusion of other part of head, initial encounter; I10 Essential (primary) hypertension; I48.91 Unspecified atrial fibrillation; Z90.12 Acquired absence of left breast and nipple; Z95.1 Presence of aortocoronary bypass graft; Z91.013 Allergy to seafood; Z88.8 Allergy status to other drugs, medicaments and biological substances; W18.39XA Other fall on same level, initial encounter; Y93.89 Activity, other specified; Y92.89 Other specified places as the place of occurrence of the external cause; Y99.8 Other external cause status

== ENCOUNTER 2020-05-15 10:02 | Inpatient (IN) | payer MEDICARE, OTHER ==
[~2020-05-15] VITALS: Ht 157.5 cm; Wt 51.9 kg
--- NOTE | ~2020-05-15 | OP ---
[address] [address] OPERATIVE REPORT Name: STEFFANIE YIN Room: [address] IN [facility]#: [id number] Admission: 05/15/20 Attend Phys: Tejas Zuñiga Discharge: Date of : 32 Report #: [id number] THIS REPORT FOR: cc: Marco Newman MD, Bruce D. MD ~ Jose Alex DO DICTATED BY: Jose Alex DO, RESIDENT DATE OF SERVICE: 05/16/2020 PREOPERATIVE DIAGNOSIS: Comminuted left intertrochanteric hip fracture. POSTOPERATIVE DIAGNOSIS: Comminuted left intertrochanteric hip fracture. PROCEDURE PERFORMED: Cephalomedullary nail fixation of left intertrochanteric hip fracture using [employer] system following components: 1. A 10 mm x 170 mm 125-degree nail. 2. A 100 mm lag screw. 3. A 35 mm distal interlock. SURGEON: Jose Alex DO ASSISTANTS: Maya Garcia DO; Ty Enriquez DO ANESTHESIA: General with block. ESTIMATED BLOOD LOSS: 50. SPECIMENS: None. COMPLICATIONS: None. DISPOSITION: Stable to PACU. ANTIBIOTICS: IV Ancef given preoperatively. INDICATIONS: The patient is an 89-year-old female who presented to the hospital after a ground-level fall. She is complaining of left hip pain. On exam, she is shortened and externally rotated. Imaging showed a comminuted displaced intertrochanteric left hip fracture. Therefore, I recommend she undergo operative fixation. DESCRIPTION OF PROCEDURE: The patient was seen preoperatively. Written consent was obtained. Operative site was marked. The patient was brought into the operative suite, given benefit of general anesthetic. [place] [address] OPERATIVE REPORT Name: STEFFANIE YIN Room: [address] IN [facility].#: [id number] Admission: 05/15/20 Attend Phys: Tejas Zuñiga Discharge: Date of : 31 Report #: [id number] Witt table, which was well padded with a well-padded perineal post. Left leg was placed in the boot subsequent to ____. The well leg was placed into the Well-Leg peters and was well padded. A reduction maneuver was performed. Imaging confirmed appropriate reduction. Left lower extremity was then prepped and draped in normal sterile fashion. A surgical timeout was performed, correct site and procedure was verified. All present were in agreement. Procedure began with a longitudinal incision just proximal tip of the greater trochanter in line with the femoral shaft. We dissected with the knife through the skin and subcutaneous fat to the tensor fascia. We identified the greater trochanter. The guidewire was used to localize the starting point. After this was confirmed on both AP and lateral imaging, the guidewire was introduced in the canal. We overreamed this with the opening reamer. We then passed a ball-tipped guidewire. We passed the short [place] gamma nail. After the nail was in the appropriate position in the shaft, we made an incision for the proximal lag screw. Sharply dissected down to bone. A 2-in-1 guide was placed through the aiming arm. The guidewire was shot through this into the neck. We confirmed appropriate position in both AP and lateral imaging. We then measured to 100. We overdrilled with the reamer. A 100 mm screw was placed. Once this in the appropriate position, we used the guide to compress. We then placed the proximal locking screw. We then turned our attention distally. A 3-in-1 guide was placed through the targeting arm and we made an incision to bone. We drilled, measured to 35 mm screw was placed appropriately. We then took final images, which were saved to the PACS system. All wounds were thoroughly irrigated. Fascial layer was closed with #1 Vicryl in a [id number] fashion. Subcutaneous tissue was closed with 2-0 Vicryl in a simple inverted interrupted fashion. Skin was reapproximated with lorna. Sterile dressings were applied. The patient was awoken from anesthesia and transferred to PACU in stable condition with no complications. Needle and sponge counts correct x 2. Dr. Alex was present for all critical aspects of the case. By: [id number] Juan Pablo Alex DO /arnold
[~2020-05-15 10:02] MED LIST changes: +NORCO 5-325 TA1 EAC1 PO; +RAYOS5 MG PO
[2020-05-15 10:04] VITALS: BP 116/39
[2020-05-15 10:35] LABS: URINE BILIRUBIN NEGATIVE (Negative); URINE BLOOD NEGATIVE (Negative); URINE CLARITY CLEAR; URINE COLOR YELLOW; URINE GLUCOSE-RANDOM 1+ (Negative); URINE KETONES NEGATIVE (Negative); URINE LEUKOCYTES-REFLEX NEGATIVE (Negative); URINE NITRITE-REFLEX NEGATIVE (Negative); URINE PROTEIN NEGATIVE (Negative); URINE SPECIFIC GRAVITY 1.015 (1.005-1.030); URINE UROBILINOGEN 0.2 E.U./dl (0.2-1.0)
[2020-05-15 10:47] LABS: ABSOLUTE EOSINOPHILS 0.1 thou/uL (0.0-0.7); ABSOLUTE LYMPHOCYTES 1.3 thou/uL (0.8-5.3); ABSOLUTE MONOCYTES 0.7 thou/uL (0.0-1.2); ABSOLUTE NEUTROPHILS 6.3 thou/uL (1.6-8.1); BASOPHILS 0.5 %; EOSINOPHILS 0.8 %; HEMATOCRIT 40.9 % (37.0-47.0); HEMOGLOBIN 13.3 gm/dL (12.0-15.0); LYMPHOCYTES 15.9 %; MCH 25.8 pg (26.0-34.0); MCHC 32.6 g/dL (28.0-37.0); MCV 79.1 fL (80.0-100.0); MONOCYTES 8.4 %; MPV 6.9 fl. (7.2-11.1); NUCLEATED RBCS 0 /100WBC; PLATELET COUNT* 242 thou/uL (150-400); POLYS 74.4 %; RBC 5.17 mil/uL (4.20-5.00); RDW-CV 17.7 % (10.5-14.5); WBC 8.5 thou/uL (4.0-11.0)
[2020-05-15 10:56] LABS: CALCIUM 9.8 mg/dL (8.5-10.1); CREATININE 0.9 mg/dL (0.6-1.3); POTASSIUM 4.1 mmol/L (3.5-5.1)
[2020-05-15 11:00] LABS: ALBUMIN 3.3 g/dL (3.4-5.0); APTT 23.3 Seconds (25.0-31.3); PROTIME 10.7 Seconds (9.20-11.50); TOTAL BILIRUBIN 0.6 mg/dL (<0.1-1.0); TOTAL PROTEIN 6.7 g/dL (6.4-8.2)
[2020-05-15] MEDS ORDERED: DIGOX250 MCG PO (15:05)
[2020-05-15] MEDS ORDERED: DIGOX125 MCG PO (15:06)
--- NOTE | 2020-05-15 15:07 | NUR ---
FAMILY TO BRING IN TRILOGY FROM HOME
--- NOTE | 2020-05-15 15:33 | NUR ---
PT SLEEPING NO BEHAVIORS SINCE RELEASED FROM RESTRAINTS
[2020-05-15 16:01] VITALS: BP 106/52
[2020-05-15 21:19] VITALS: BP 135/49
[2020-05-16 04:00] VITALS: BP 127/54
--- NOTE | 2020-05-16 04:16 | NUR ---
PATIENT UP TO FLOOR AT APPROX 2125 FROM ER. PT ALERT/ORIENTED X4 AND LIVES IN AN APARTMENT BY HERSELF. PT USES WALKER AT HOME ALSO HAS GRAB BARS AND SHOWER CHAIR. PT IS A DIABETIC. PT SAID SHE TRIPPED OVER AN EXTENSION CORD AND LT HIP IS FRACTURED. PT WITH COMPRESSION STOCKINGS IN PLACE; WILL BE REMOVED THIS AM PRIOR TO SURGERY. PT MADE NPO AT MIDNIGHT. PT DENIES PAIN, SAID MORPHINE WORKS BETTER THAN FENTANYL. PT ORIENTED TO ROOM/POLICIES AND VERBALIZES UNDERSTANDING. FREQUENTLY USED ITEMS AND CALL LIGHT WITHIN REACH. SIDERAILS UPX2 AND BED ALARM ON. WILL CONTINUE TO MONITOR.
[2020-05-16 05:11] VITALS: BP 127/54
[2020-05-16 12:13] VITALS: BP 126/51
--- NOTE | 2020-05-16 12:59 | NUR ---
PATIENT ARRIVED BACK FOR SURGERY ALERT AND ORIENTED X4. DENIES PAIN OR NAUSEA AT THIS TIME. DRESSING DRY AND INTACT OVER LEFT HIP. MÉNDEZ CATHETER PATENT WITH CLEAR YELLOW URINE. ON O2 AT 2L/NC TO KEEP O2 SAT IN 90'S. CALL LIGHT WITHIN REACH. ASSESSMENT CHARTED. FALL PRECAUTIONS IN PLACE. BED ALARM ON.
--- NOTE | 2020-05-16 13:52 | EKG ---
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: : 1930 Requested By: Blair Fowler Order Number: [id number] MD: Jose Brown Measurements Intervals [place] Rate: 70 P: ME: QRS: -82 QRSD: 142 T: 83 QT: 397 QTc: 429 Interpretive Statements Atrial fibrillation Right bundle branch block LVH with secondary repolarization abnormality Inferior infarct, old Anterior infarct, old Lateral leads are also involved Compared to ECG 11/21/2018 20:00:22 Left ventricular hypertrophy now present Electronically Signed On 05-16-2020 13:52:30 GROUNDS KEEPER by Jose Brown [email or web address] <ELECTRONICALLY SIGNED> By: Jose Brown MD, FACC 05/16/20 1352 1031 1031 Jose Brown MD, FAC /EPI
[2020-05-16 14:45] LABS: PHOSPHORUS* 4.2 mg/dL (2.5-4.9)
[2020-05-16 16:40] VITALS: BP 110/38
--- NOTE | 2020-05-16 18:15 | NUR ---
ALERT AND ORIENTED X4. UP TO CHAIR TODAY WITH THERAPY. DENIES NEED FOR PAIN MEDICATION. HAS MÉNDEZ CATHETER PATENT WITH CLEAR YELLOW URINE. IV WAS PULLED OUT WITH TRANSFER. NEW IV STARTED WITHOUT DIFFICULTY. IVF INFUSING WITHOUT DIFFICULTY. DRESSING DRY AND INTACT OVER LEFT HIP. ON O2 AT 2L/NC. REMAINS ON HEART MONITOR AT THIS TIME IN A FIB. USES CALL LIGHT FOR ASSIST. NO C/O NAUSEA. FALL PRECAUTIONS IN PLACE. BED ALARM USED.
[2020-05-17] VITALS: BP 121/45
[2020-05-17 04:00] VITALS: BP 118/77
[2020-05-17 04:02] LABS: HEMATOCRIT 30.6 % (37.0-47.0)
[2020-05-17 04:15] LABS: CALCIUM 9.2 mg/dL (8.5-10.1); CREATININE 0.9 mg/dL (0.6-1.3); POTASSIUM 4.1 mmol/L (3.5-5.1)
[2020-05-17 04:17] LABS: HEMOGLOBIN 9.9 gm/dL (12.0-15.0)
[2020-05-17 08:00] VITALS: BP 104/52
--- NOTE | 2020-05-17 09:56 | NUR ---
CM SPOKE TO THE PT TO COMPLETE CM ASSESSMENT. PT A&O, NORMALLY INDEPENDNT WITH ADL'S AND DRIVES. PT RESIDES AT HOME ALONE, BUT INFORMS THAT HER 2 DTRS LIVE NEARBY AND ARE ABLE TO ASSIST HER NEEDED. PT USES A ROLLER WALKER FOR MOBILITY, AND ALSO USES A TRILOGY AT HOME. PT HAS HH HX WITH [facility]. PT HAS HX OF SNF WITH [facility]. PT WILL NEED P.T. F/U TO DETERMINE D/C PLANNING, BUT IT APPEARS THAT PT MAY NEED EITHER SNF OR ARU AT D/C. CM WILL REMAIN AVAILABLE TO ASSIST AND FOLLOW NEEDED.
[2020-05-17 11:54] VITALS: BP 101/47
[2020-05-17 15:42] VITALS: BP 129/49
[2020-05-17 20:00] VITALS: BP 128/57
--- NOTE | 2020-05-18 03:25 | NUR ---
ASSUMED PT CARE AT 1930. PT IS A/OX4. VSS. PT IS ON 2L VIA NC. O2 SAT 95% PT DENIES C/O PAIN. PT'S RFA IV UNABLE TO FLUSH. PT INSISTED THE NEW IV BE PLACED IN LEFT LIMB. A 20G IV WAS PLACED IN LFA WITH SUCCESS. PT HAS FLUIDS INFUSING ORDERED. PT HAS A MÉNDEZ CATHETER IN PLACE FOR IMMOBILIZATION. CATHETER IS SECURED TO PT'S THIGH AND IS PATENT. YELLOW URINE NOTED. PT USES CPAP AT BEDTIME. PT USING CPAP INTERMITTENTLY. PT STATES THE CPAP CAN BE A NUISANCE AND NEEDS A BREAK THROUGHOUT THE NIGHT. HOURLY ROUNDING DONE CHARTED. CALL LIGHT WITHIN PLACE. FALL PRECAUTIONS IN PLACE. PT CURRENTLY ASLEEP AND RESTING IN BED. WILL CONTINUE TO MONITOR.
[2020-05-18 04:13] LABS: HEMATOCRIT 27.7 % (37.0-47.0); HEMOGLOBIN 8.9 gm/dL (12.0-15.0)
[2020-05-18 06:15] VITALS: BP 111/51
[2020-05-18 07:30] VITALS: BP 117/45
--- NOTE | 2020-05-18 15:08 | NUR ---
PT ROUNDING POC UPDATE: PT HAS BEEN ACCEPTED BY ARU. HOWEVER, D/T DROP IN HEMOGLOBIN PT WILL REMAIN IN ACUTE CARE FOR OBSERVATION.
[2020-05-18 17:05] VITALS: BP 132/55
[2020-05-18 20:44] VITALS: BP 140/60
[2020-05-18 23:59] VITALS: BP 122/50
[2020-05-19 05:48] LABS: HEMATOCRIT 26.9 % (37.0-47.0); HEMOGLOBIN 8.7 gm/dL (12.0-15.0); MCH 26.1 pg (26.0-34.0); MCHC 32.5 g/dL (28.0-37.0); MCV 80.1 fL (80.0-100.0); MPV 7.5 fl. (7.2-11.1); RBC 3.36 mil/uL (4.20-5.00); RDW-CV 17.4 % (10.5-14.5); WBC 7.3 thou/uL (4.0-11.0)
[2020-05-19 06:08] LABS: CREATININE 0.7 mg/dL (0.6-1.3); MAGNESIUM 2.1 mg/dL (1.8-2.4); POTASSIUM 4.4 mmol/L (3.5-5.1)
--- NOTE | 2020-05-19 08:06 | NUR ---
PT IS ABLE TO COMMUNICATE HER NEEDS TO STAFF EFFECTIVELY. SHE HAS DENIED THE NEED FOR PAIN MEDICATION UP TO THIS TIME. 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 SHE HAS BEEN GETTING UP WITH ASSIST OF ONE TO THE BSC. SURGICAL DRESSING TO LEFT HIP REENFORCED THIS AM BY ORTHO . POSSIBLE DISCHARGE TODAY WITH IMMEDIATE READMIT TO 3E REHAB HERE AT [facility].
[2020-05-19] MEDS ORDERED: HYDROCODON-ACE1 EAC7 PO (08:12)
[2020-05-19] MEDS ORDERED: TRAMADOL 50 MG50 MG PO (08:12)
[2020-05-19 09:52] VITALS: BP 117/52
[2020-05-19 10:01] VITALS: BP 117/52
--- NOTE | 2020-05-19 10:15 | NUR ---
Reviewed discharge teaching with patient; verbalized understanding. IV dc'd. Pt discharge to ARU per w/c.
--- NOTE | 2020-05-19 11:15 | NUR ---
CM INFORMED DURING PRIME ROUNDING OF THE PLAN OF CARE FOR THE PT. PLAN FOR PT TO D/C TO INPT ARU TODAY. CM WILL REMAIN AVAILABLE TO ASSIST AND FOLLOW NEEDED.
== END 2020-05-19 10:45 | DRG 481 ==
LOC: M.ERS 10:02 → M.2W 10:58 → M.TBA-ER 10:58 → M.2W 21:57
PROVIDERS: Family Medicine; Internal Medicine; Orthopaedic Surgery; ADMIT Internal Medicine; ATTEND Internal Medicine
PROC: 5A09357 Assistance with Respiratory Ventilation, Less than 24 Consecutive Hours, Continuous Positive Airway Pressure (ICD-10-PCS; principal; 2020-05-15)
PROC: 0QS706Z Reposition Left Upper Femur with Intramedullary Internal Fixation Device, Open Approach (ICD-10-PCS; 2020-05-16)
PROC: 3E0T3BZ Introduction of Anesthetic Agent into Peripheral Nerves and Plexi, Percutaneous Approach (ICD-10-PCS; 2020-05-16)
PROC: 5A09357 Assistance with Respiratory Ventilation, Less than 24 Consecutive Hours, Continuous Positive Airway Pressure (ICD-10-PCS; 2020-05-18)
DX: S72.142A Displaced intertrochanteric fracture of left femur, initial encounter for closed fracture (principal); D68.69 Other thrombophilia; I50.32 Chronic diastolic (congestive) heart failure; I48.20 Chronic atrial fibrillation, unspecified; I13.0 Hypertensive heart and chronic kidney disease with heart failure and stage 1 through stage 4 chronic kidney disease, or unspecified chronic kidney disease; D62 Acute posthemorrhagic anemia; J44.9 Chronic obstructive pulmonary disease, unspecified; I25.10 Atherosclerotic heart disease of native coronary artery without angina pectoris; I25.119 Atherosclerotic heart disease of native coronary artery with unspecified angina pectoris; E11.22 Type 2 diabetes mellitus with diabetic chronic kidney disease; W18.39XA Other fall on same level, initial encounter; N18.30 Chronic kidney disease, stage 3 unspecified; Z60.2 Problems related to living alone; G47.33 Obstructive sleep apnea (adult) (pediatric); Z20.822 Contact with and (suspected) exposure to COVID-19; Y93.89 Activity, other specified; Z90.12 Acquired absence of left breast and nipple; Z95.4 Presence of other heart-valve replacement; Z79.899 Other long term (current) drug therapy; Z79.84 Long term (current) use of oral hypoglycemic drugs; Z91.013 Allergy to seafood; Z91.09 Other allergy status, other than to drugs and biological substances; Y92.89 Other specified places as the place of occurrence of the external cause; Y99.8 Other external cause status; Z95.1 Presence of aortocoronary bypass graft

== ENCOUNTER 2020-05-19 09:34 | Inpatient (IN) | payer MEDICARE, OTHER ==
[~2020-05-19] VITALS: Ht 157.5 cm; Wt 51.9 kg
[~2020-05-19 09:34] MED LIST changes: +DIGOX125 MCG PO; +DIGOX250 MCG PO; +HYDROCODON-ACE1 EAC7 PO; +TRAMADOL 50 MG50 MG PO
[2020-05-19 13:16] VITALS: BP 110/40
--- NOTE | 2020-05-19 16:18 | NUR ---
INITIAL ASSESSMENT: PATIENT ADMITTED TO THE INPT ARU ON 05/19/20 WITH A DIAGNOSIS OF LEFT HIP FX. PATIENT ALERT AND ORIENTED. PATIENT NORMALLY INDEPENDENT WITH ADL'S, ACTIVE, AND DRIVES. PT RESIDES AT HOME ALONE, BUT INFORMS THAT HER 2 DTRS LIVE NEARBY AND ONE OF THEM WILL EITHER STAY WITH HER OR SHE CAN STAY WITH THEM AT D/C TO ASSIST HER. PT USES A ROLLER WALKER FOR MOBILITY. PT ALSO USES A TRILOGY AT HOME AND BROUGHT IT WITH HER TO THE HOSPITAL. PT HAS PAST HX OF HH WITH [facility]. PT HAS PAST HX OF SNF WITH [facility]. CM ORIENTED PT TO THE INPT ARU AND PROCESSES, RESIDENTS RIGHTS INFO, TEAM CONFRENCE MEETING, AND TO THE ROLE OF CM. CM WILL REMAIN AVAILABLE TO ASSIST AND FOLLOW NEEDED.
--- NOTE | 2020-05-19 16:19 | NUR ---
PATIENT ADMITTED FROM THIS AFTERNOON. REPORT RECEIVED FROM FARTUN BOLAÑOS. ALERT AND ORIENTED X 4. NO COMPLAINTS OF PAIN. DRESSING TO LEFT HIP INTACT, BRUISING NOTED. UP WITH ASSISTANCE OF 1, GAIT BELT AND WALKER. PATIENT AMBULATED IN HALLS WITH THIS NURSE WITHOUT DIFFICULTY. UP TO CHAIR FOR MEALS. ACCUCHECK WITH INSULIN SCALE. ORIENTED TO UNIT. CALL LIGHT WITHIN REACH.
[2020-05-19 20:16] VITALS: BP 112/57
[2020-05-20 04:36] LABS: HEMATOCRIT 27.2 % (37.0-47.0); HEMOGLOBIN 8.9 gm/dL (12.0-15.0); MCH 26.3 pg (26.0-34.0); MCHC 32.9 g/dL (28.0-37.0); MCV 79.9 fL (80.0-100.0); RBC 3.4 mil/uL (4.20-5.00); RDW-CV 17.7 % (10.5-14.5); WBC 6.9 thou/uL (4.0-11.0)
[2020-05-20 04:45] LABS: CALCIUM 8.8 mg/dL (8.5-10.1); CREATININE 0.7 mg/dL (0.6-1.3); POTASSIUM 4.9 mmol/L (3.5-5.1)
--- NOTE | 2020-05-20 07:20 | NUR ---
ASSUMED PT CARE AT 1930. ASSESSMENT COMPLETED CHARTED. ABLE TO MAKE NEEDS KNOWN. RESTING IN BED COMFORTABLY. C/O BACK PAIN AND GAVE PRN PAIN MEDICATIONS. UP WITH 1 ASSIST. NO SKIN ISSUES. TRILOGY USED WHILE SLEEPING. WILL CONTINUE TO MONITOR.
[2020-05-20 07:40] VITALS: BP 113/60
--- NOTE | 2020-05-20 11:03 | NUR ---
Nutrition: Pt admitted to rehab s/p Lt hip FX. Wt: 115#. CHO controlled diet, eating well. Meds: insulin, fish oil, MVI, lasix. PMHx: HTN, anemia, CAD. BG 107, alb 3.3. Appears at low nutrition risk.
--- NOTE | 2020-05-20 16:08 | NUR ---
PATIENT COMPLETED THERAPIES ORDERED. UP WITH ASSISTANCE, GAIT BELT AND WALKER. PHOTOS TAKEN AND DRESSINGS APPLIED TO LEFT HAND AND LEFT FOREARM SKIN TEARS. VOIDING PER BSC. BM NOTED THIS SHIFT.
[2020-05-20 19:35] VITALS: BP 154/63
[2020-05-21 05:11] LABS: CALCIUM 8.8 mg/dL (8.5-10.1); CREATININE 0.8 mg/dL (0.6-1.3); POTASSIUM 4.8 mmol/L (3.5-5.1)
[2020-05-21 08:30] VITALS: BP 110/59
--- NOTE | 2020-05-21 14:13 | NUR ---
I have reviewed the documentation by CAROL IRELAND from 05/21/20 to 05/21/20 and I concur with it. NEAL ELLIOTT
--- NOTE | 2020-05-21 17:21 | NUR ---
ALERT AND ORIENTED X4. UP WITH 1 ASSIST, GAIT BELT AND STAND BY ASSIST. USES PO PAIN MEDICATION TO HELP WITH RIGHT HIP PAIN. REMAINS WEIGHTBEARING TOLERATED. DRESSING DRY AND INTACT OVER LEFT HIP. CONTINENT OF BOWEL AND BLADDER. USES CALL LIGHT WITHIN REACH. FALL PRECAUTIONS IN PLACE. BED ALARM AND CHAIR ALARM USED.
[2020-05-21 20:00] VITALS: BP 133/43
--- NOTE | 2020-05-22 05:32 | NUR ---
ASSUMED PT CARE AT 1930. PT ALERT AND ORIENTED X4, POLITE AND COOPERATIVE WITH CARES. PT UP TO BSC WITH SBA, GAIT BELT AND WALKER. STOOL X1 THIS SHIFT. TYLENOL AT HS PER PT REQUEST FOR RIGHT HIP PAIN. DRESSING TO RIGHT HIP C/D/I. DRESSINGS TO SKIN TEARS ON LEFT HAND AND LEFT FOREARM INTACT. PT SLEPT WELL OVERNIGHT. WEARS TRILOGY WHILE SLEEPING. USES CALL LIGHT APPROPRIATELY. CALL LIGHT IN REACH, BED ALARM ON FOR SAFETY. HOURLY ROUNDING IN PROGRESS, WILL CONTINUE TO MONITOR.
[2020-05-22 08:30] VITALS: BP 111/55
--- NOTE | 2020-05-22 16:31 | NUR ---
ALERT AND ORIENTED X4. UP WITH 1 ASSIST, GAIT BELT AND WALKER. PO PAIN MEDICATION GIVEN PRIOR TO THERAPIES TO HELP WITH PAIN. ALSO USING ICE PACK TO HELP WITH PAIN. TAKES PILLS WHOLE WITHOUT DIFFICULTY. DRESSING DRY AND INTACT OVER LEFT HIP INCISION. PATIENT REFUSED DRESSINGS TO SKIN TEARS ON LEFT ARM. USES CALL LIGHT FOR ASSIST. FALL PRECAUTIONS IN PLACE. BED ALARM AND CHAIR ALARMS USED.
[2020-05-22 20:00] VITALS: BP 128/55
--- NOTE | 2020-05-23 05:38 | NUR ---
ASSUMED CARES AT 1920. ALERT AND ORIENTED. PLEASANT. C/O LEFT HIP PAIN. APAP GIVEN NEEDED. DRSG TO LEFT HIP INTACT. MIN ASSIST WITH GAIT BELT AND WALKER. UP TO BSC. TRILOGY ON AT NIGHT. SLEPT WELL. CALL LIGHT IN REACH AND BED ALARM ON.
[2020-05-23 08:00] VITALS: BP 109/58
--- NOTE | 2020-05-23 18:51 | NUR ---
ALERT AND ORIENTED X4. UP WITH STAND BY ASSIST GAIT BELT AND WALKER. DENIED NEED FOR PO PAIN MEDICATION. ICE PACK APPLIED TO LEFT HIP PATIENT STATED WAS HELPFUL. TAKES PILLS WHOLE WITHOUT DIFFICULTY. CONTINENT OF BOWEL AND BLADDER. USES CALL LIGHT FOR ASSIST. FALL PRECAUTIONS IN PLACE. BED ALARM AND CHAIR ALARM USED.
[2020-05-23 20:12] VITALS: BP 155/64
--- NOTE | 2020-05-24 06:14 | NUR ---
ASSUMED CARES AT 1920. ALERT AND ORIENTED. PLEASANT. LEFT HIP DRSG INTACT. APAP GIVEN FOR PAIN. ICE PACK TO LEFT LEG. MIN ASSIST WITH GAIT BELT AND WALKER. UP TO BR OR BSC. TRILOGY AT NIGHT. SLEPT OFF AND ON. CALL LIGHT IN REACH AND BED ALARM ON.
[2020-05-24 08:00] VITALS: BP 117/52
--- NOTE | 2020-05-24 18:14 | NUR ---
ASSESSMENT COMPLETED DOCUMENTED THIS MORNING. PATIENT HAS BEEN UP TO USE THE BSC X7 TODAY REMAINING CONT OF B&B. AT THE BEDSIDE FOR THE DAY . PATIENT CONTINUES TO REQUIRE X2 MAX ASSIST FOR TRANSFERS WITH USE OF GB/FWW. FREQUENT REMINDERS TO KEEP HER EYES OPEN, FOCUSED AND FEET/KNEES APART FOR PROPER BALANCE WITH TRANSFERS.
--- NOTE | 2020-05-24 18:19 | NUR ---
ASSESSMENT COMPLETED DOCUMENTED THIS MORNING. PATIENT HAS REC'D 650MG OF ACETAMINOPHEN X2 TODAY PRIOR TO THERAPY WITH RELIEF AND COMFORT NOTED. VERY PLEASANT AND MAKES HER NEEDS KNOWN REMAINING CONT OF B&B ALL DAY. NO ISSUES OR CHANGES IN CONDITION NOTED.
[2020-05-24 19:55] VITALS: BP 117/52
--- NOTE | 2020-05-25 05:16 | NUR ---
ASSUMED CARES AT 1920. ALERT AND ORIENTED. PLEASANT. TYLENOL GIVEN FOR LEFT HIP PAIN. ICE PACK APPLIED. DRSG INTACT TO LEFT HIP. MIN ASSIST WITH GAIT BELT AND WALKER. UP TO BR. SLEPT OFF AND ON. CALL LIGHT IN REACH AND BED ALARM ON.
[2020-05-25 08:34] VITALS: BP 130/48
--- NOTE | 2020-05-25 18:34 | NUR ---
ASSESSMENT COMPLETED DOCUMENTED THIS MORNING. PATIENT HAS BEEN UP AND PARTICIPATING WITH THERAPY PROGRESSING WELL. HAS REMAINED CONTINENT OF B&B REQUESTING ASSISTANCE TO AND FROM THE BR WHEN NEEDED. ACETAMINOPHEN 650MG X1 TODAY PRIOR TO THERAPY WITH RELIEF NOTED. NO ISSUES OR CHANGES IN CONDITION NOTED.
[2020-05-25 19:26] VITALS: BP 113/50
[2020-05-26 05:02] LABS: HEMOGLOBIN 9.1 gm/dL (12.0-15.0); MCH 26.2 pg (26.0-34.0); MCHC 32.4 g/dL (28.0-37.0); MPV 7.2 fl. (7.2-11.1); RBC 3.46 mil/uL (4.20-5.00); WBC 5.3 thou/uL (4.0-11.0)
[2020-05-26 05:19] LABS: CALCIUM 9.1 mg/dL (8.5-10.1); CREATININE 0.7 mg/dL (0.6-1.3); POTASSIUM 4.4 mmol/L (3.5-5.1)
--- NOTE | 2020-05-26 06:01 | NUR ---
ASSUMED PT CARE AT 1930. ASSESSMENT COMPLETED CHARTED. ABLE TO MAKE NEEDS KNOWN. UP WITH 1 ASSIST TO BSC. CPAP ON AT NIGHT. C/O LEFT HIP PAIN AND USED PRN PAIN MEDS AND AN ICE BAG. RESTING IN BED AT THIS TIME. WILL CONTINUE TO MONITOR.
[2020-05-26 07:30] VITALS: BP 133/61
--- NOTE | 2020-05-26 16:21 | NUR ---
PATIENT COMPLETED THERAPIES ORDERED THIS SHIFT. TEAM MEETING THIS SHIFT, RETEAM. PRN TYLENOL GIVEN FOR LEFT LEG PAIN, PER DR. GARCIA INCREASE TO 1000MG Q8 PRN, PATIENT AWARE OF NEW ORDERS. DRESSING TO LEFT LEG REMAINS INTACT. LEFT LEG COMPRESSION SOCK IN PLACE, 1+ EDEMA NOTED. PATIENT INSTRUCTED TO KEEP FEET ELEVATED WHEN OUT OF BED. UP WITH ASSISTANCE OF 1, GAIT BELT AND WALKER.
[2020-05-26 19:00] VITALS: BP 122/50
--- NOTE | 2020-05-27 04:51 | NUR ---
ASSUMED PT CARE AT 1930. PT ALERT AND ORIENTED X4, POLITE AND COOPERATIVE WITH CARES. PT ABLE TO MAKE NEEDS KNOWN. TYLENOL AT HS PER PT REQUEST. DRESSING TO LEFT HIP C/D/I. WEARS TRILOGY OVERNIGHT. SLEPT WELL. USES CALL LIGHT APPROPRIATELY. CALL LIGHT IN REACH, BED ALARM ON FOR SAFETY. HOURLY ROUNDING IN PROGRESS, WILL CONTINUE TO MONITOR.
[2020-05-27 07:30] VITALS: BP 106/45
--- NOTE | 2020-05-27 15:27 | NUR ---
TEAM CONFRENCE MEETING HELD TODAY. CM AND PHYSICIAN INFORMED PT OF MEETING AND PLAN TO RE-TEAM AND HAVE THE PT REMAIN ON THE UNIT FOR ANOTHER WEEK TO CONTINUE THERAPIES. PT PROGRESSING TOWARDS GOALS, BUT BARIERS ARE LEFT SIDE PAIN AND WEAKNESS, BALANCE, AND UE STRENGTH. CM WILL REMAIN AVAILABLE TO ASSIST AND FOLLOW NEEDED.
--- NOTE | 2020-05-27 16:41 | NUR ---
PATIENT COMPLETED THERAPIES ORDERED THIS SHIFT. UP WITH 1 AND GAIT BELT/WALKER. DRESSING TO LEFT HIP REMAINS D/I. PRN TYLENOL GIVEN X 1 PRIOR TO THERAPY, PATIENT REFUSED ANYMORE TYLENOL TILL BEDTIME TONIGHT. NO INSULIN REQUIRED WITH BREAKFAST OR LUNCH.
[2020-05-27 19:15] VITALS: BP 123/48
--- NOTE | 2020-05-28 05:20 | NUR ---
ASSUMED PT CARE AT 1930. PT ALERT AND ORIENTED X4, POLITE AND COOPERATIVE WITH CARES. PT ABLE TO MAKE NEEDS KNOWN. TYLENOL AT HS PER PT REQUEST. DRESSING TO LEFT HIP C/D/I. NEW SKIN TEAR TO RIGHT ELBOW. DRESSING APPLIED, PICTURE IN CHART. STOOL X1. WEARS TRILOGY OVERNIGHT. SLEPT WELL. USES CALL LIGHT APPROPRIATELY. CALL LIGHT IN REACH, BED ALARM ON FOR SAFETY. HOURLY ROUNDING IN PROGRESS, WILL CONTINUE TO MONITOR.
[2020-05-28 07:30] VITALS: BP 140/63
--- NOTE | 2020-05-28 15:24 | NUR ---
I have reviewed the documentation by CAROL IRELAND from 05/24/20 to 05/28/20 and I concur with it. NEAL ELLIOTT
--- NOTE | 2020-05-28 16:19 | NUR ---
PT WORKED WITH THERAPIES. UP WITH GAIT BELT,WALKER AND STB ASSIST. PRN PAIN MEDICATION GIVEN PER PT REQUEST. BED/CHAIR ALRMS ON NEEDED.
[2020-05-28 20:00] VITALS: BP 115/43
--- NOTE | 2020-05-29 04:49 | NUR ---
ASSUMED PT CARE AT 1930. PT ALERT AND ORIENTED X4, POLITE AND COOPERATIVE WITH CARES. PT ABLE TO MAKE NEEDS KNOWN. TYLENOL AT HS PER PT REQUEST. UP TO BATHROOM WITH SBA, GAIT BELT AND WALKER. STOOL X1 THIS SHIFT. DRESSING TO RIGHT ELBOW SKIN TEAR CHANGED. WEARS TRILOGY OVERNIGHT. SLEPT WELL. USES CALL LIGHT APPROPRIATELY. HOURLY ROUNDING IN PROGRESS, WILL CONTINUE TO MONITOR.
[2020-05-29 07:30] VITALS: BP 118/54
--- NOTE | 2020-05-29 16:19 | NUR ---
PATIENT DID NOT HAVE THERAPIES THIS SHIFT. THIS NURSE AMBULATED WITH PATIENT IN HALLWAYS X 2, PATIENT DOES GET FATIGUED QUICKLY. UP WITH ASSISTANCE, GAIT BELT AND WALKER. ORTHO PAGED AND PER DR. HURLEY WILL SEE PATIENT ON SUNDAY FOR STAPLE REMOVAL, PATIENT AWARE OF PLAN OF CARE. REFUSED TYLENOL THIS SHIFT. ICE PACK TO LEFT HIP, DRESSING D/I. VOIDING PER TOILET AND BM NOTED.
[2020-05-29 19:30] VITALS: BP 137/60
--- NOTE | 2020-05-29 19:30 | NUR ---
SITTING UP IN RECLINER WATCHING TV. IN [employer]. CALL LIGHT WITHIN REACH. DENIES NEED FOR PAIN MEDICINE AT THIS TIME.
--- NOTE | 2020-05-30 06:02 | NUR ---
RESTED QUIETLY WITH TRILEGY UNTIL ABOUT 0430. UP TO THE TOILET X ONE DURING THE NIGHT TO VOID. TRANSFERS WITH STANDBY, GAITBELT, WALKER. DOES OWN KHADIJAH CARE AND CLOTHING ADJUSTMENTS. TYLENOL GIVEN AT BEDTIME FOR COMPLAINT OF LEFT HIP PAIN WITH RELIEF. HOURLY ROUNDING IN PROGRESS.
[2020-05-30 07:30] VITALS: BP 127/64
--- NOTE | 2020-05-30 16:53 | NUR ---
PATIENT UP IN CHAIR THIS SHIFT. PATIENT AMBULATED X 2 WITH THIS NURSE IN HALLWAYS. UP WITH ASSISTANCE; GAIT BELT AND WALKER. DRESSING REMAINS IN PLACE TO LEFT HIP, ICE PACKS. RIGHT ELBOW DRESSING CHANGED AND PICTURE TAKEN PER PROTOCOL. UP TO BATHROOM WITH ASSISTANCE, BM NOTED 3 TIMES THIS SHIFT.
[2020-05-30 19:30] VITALS: BP 125/55
--- NOTE | 2020-05-30 19:30 | NUR ---
RESTING QUIETLY IN BED WATCHING THE SUPER BOWL AND WORKING ON A WORD PUZZLE. TYLENOL GIVEN FOR COMPLAINT OF LEFT HIP PAIN. AMBULATED TO THE BATHROOM WITH STANDBY GAITBELT WALKER AND HAD A LARGE FORMED BM. DID OWN KHADIJAH CARE AND CLOTHING ADJUSTMENTS. CALL LIGHT WITHIN REACH.
--- NOTE | 2020-05-31 05:37 | NUR ---
RESTED QUIETLY WITH TRILEGY. NO FURTHER COMPLAINT OF PAIN. HOURLY ROUNDING IN PROGRESS.
[2020-05-31 07:59] VITALS: BP 157/73
--- NOTE | 2020-05-31 17:28 | NUR ---
CM SPOKE TO THE PT TO DISCUSS ANY QUESTIONS OR CONCERNS THAT SHE MAY HAVE FOR THIS WEEKS MEETING.PT HAS NO QUESTIONS OR CONCERNS AT THIS TIME. CM WILL REMAIN AVAILABLE TO ASSIST AND FOLLOW NEEDED.
[2020-05-31 19:50] VITALS: BP 117/50
--- NOTE | 2020-05-31 20:05 | NUR ---
SITTING UP IN RECLINER WORKING ON A WORD PUZZLE. TYLENOL GIVEN FOR COMPLAINT OF LEFT HIP PAIN RATED "4". AMBULATED TO THE BATHROOM WITH STAND BY, GAITBELT, WALKER TO VOID. DID OWN KHADIJAH CARE AND CLOTHING ADJUSTMENTS. LEFT KNEE HIGH COMPRESSION STOCKING REMOVED. SCD'S APPLIED. CALL LIGHT WITHIN REACH.
--- NOTE | 2020-06-01 05:21 | NUR ---
NO FURTHER COMPLAINT OF PAIN. UP X ONE DURING THE NIGHT TO THE BATHROOM TO VOID. HOURLY ROUNDING IN PROGRESS.
[2020-06-01 08:00] VITALS: BP 148/70
--- NOTE | 2020-06-01 14:54 | NUR ---
AM ASSESSMENT AND VITAL SIGNS COMPLETED DOCUMENTED. PT WORKED WITH PT, OT AND ST AND CONTINUES TO PROGRESS. PT IS HOPIN TO GO HOME TOMMORROW. PT IS AMBULATORY WITH A WALKER AND SUPERVISION. PAIN IS WELL CONTROLLED WITH PRN TYLENOL. FALL PRECAUTIONS AND HOURLY ROUNDING CONTINUE.
[2020-06-01 20:00] VITALS: BP 119/48
[2020-06-02 04:46] LABS: HEMATOCRIT 30.8 % (37.0-47.0); HEMOGLOBIN 9.9 gm/dL (12.0-15.0); MCH 26.1 pg (26.0-34.0); MCHC 32.2 g/dL (28.0-37.0); MCV 81.3 fL (80.0-100.0); MPV 6.4 fl. (7.2-11.1); RBC 3.79 mil/uL (4.20-5.00); RDW-CV 19.1 % (10.5-14.5); WBC 4.9 thou/uL (4.0-11.0)
[2020-06-02 05:29] LABS: CALCIUM 9.3 mg/dL (8.5-10.1); CREATININE 0.7 mg/dL (0.6-1.3); POTASSIUM 4.7 mmol/L (3.5-5.1)
--- NOTE | 2020-06-02 06:44 | NUR ---
ASSUMED PT CARE AT 1930. ASSESSMENT COMPLETED CHARTED. ABLE TO MAKE NEEDS KNOWN. C/O HIP PAIN AND GAVE PRN PAIN MEDCIATIONS PER EMAR. UP WITH 1 TO BATHROOM WITH SBA AND WALKER. PT STATED SHE DIDNT SLEEP VERY WELL LAST NIGHT. WILL CONTINUE TO MONITOR.
[2020-06-02 08:00] VITALS: BP 133/69
[2020-06-02 13:32] VITALS: BP 133/69
[2020-06-02 13:48] VITALS: BP 133/69
--- NOTE | 2020-06-02 14:51 | NUR ---
TEAM CONFRENCE MEETING HELD TODAY. CM AND PHYSICIAN INFORMED PT OF THE MEETING AND PLAN TO D/C PT HOME TODAY WITH HH. PT IN AGREEMENT AND REQUEST HH WITH [facility]. CM CALLED AND FAXED PT'S CLINICAL INFO AND D/C ORDERS TO [facility]. CM WILL REMAIN AVAILABLE TO ASSIST AND FOLLOW NEEDED. [facility] PHONE: [phone] FAX: [phone]
--- NOTE | 2020-06-02 16:01 | NUR ---
ASSESSMENT COMPLETED DOCUMENTED THIS MORNING. PATIENT ANXIOUS TO GO HOME AND HAS COMPLETED LAST SESSIONS WITH THERAPY. DC ORDERS REC'D AFTER TEAM CONFERENCE TODAY. 1407 DC INSTRUCTIONS, MED EDUCATION, AND F/U APPT. REVIEWED WITH UNDERSTANDING VERBALIZED AND SIGNATURE OBTAINED. 1430 PATIENT DCD VIA W/C ACCOMPANIED BY NURSING STAFF WITH ALL BELONGINGS PACKED AND SENT VIA FAMILY CAR WITH DAUGHTER.
== END 2020-06-02 14:30 | disposition home health service (06) | DRG 536 ==
LOC: M.REH 09:34
PROVIDERS: ADMIT Physical Medicine & Rehabilitation; ATTEND Physical Medicine & Rehabilitation
DX: S72.142A Displaced intertrochanteric fracture of left femur, initial encounter for closed fracture (principal); D68.69 Other thrombophilia; I50.32 Chronic diastolic (congestive) heart failure; D62 Acute posthemorrhagic anemia; I48.20 Chronic atrial fibrillation, unspecified; I13.0 Hypertensive heart and chronic kidney disease with heart failure and stage 1 through stage 4 chronic kidney disease, or unspecified chronic kidney disease; M19.031 Primary osteoarthritis, right wrist; I25.119 Atherosclerotic heart disease of native coronary artery with unspecified angina pectoris; R06.09 Other forms of dyspnea; J44.9 Chronic obstructive pulmonary disease, unspecified; N18.30 Chronic kidney disease, stage 3 unspecified; W01.0XXA Fall on same level from slipping, tripping and stumbling without subsequent striking against object, initial encounter; Y93.89 Activity, other specified; Y92.89 Other specified places as the place of occurrence of the external cause; Y99.8 Other external cause status; Z95.1 Presence of aortocoronary bypass graft; Z79.82 Long term (current) use of aspirin; Z88.8 Allergy status to other drugs, medicaments and biological substances; Z79.899 Other long term (current) drug therapy; Z87.81 Personal history of (healed) traumatic fracture; Z95.2 Presence of prosthetic heart valve; Z90.12 Acquired absence of left breast and nipple

== ENCOUNTER 2021-03-21 15:56 | Emergency (ER) | payer MEDICARE, OTHER ==
[~2021-03-21] VITALS: Ht 157.5 cm; Wt 47.6 kg
[2021-03-21] MEDS ORDERED: CIPROFLOXIN HC2.5 M1 OPHTHALMIC (19:54)
[2021-03-21] MEDS ORDERED: CEPHALEXIN500 MG PO (19:54)
[2021-03-21] MEDS ORDERED: HYDROCODON-ACE1 EAC7 PO (20:10)
[2021-03-21 20:21] VITALS: BP 144/53
== END 2021-03-21 20:20 | disposition home or self-care (01) ==
LOC: M.ERS 15:56
DX: S52.022A Displaced fracture of olecranon process without intraarticular extension of left ulna, initial encounter for closed fracture (principal); S76.012A Strain of muscle, fascia and tendon of left hip, initial encounter; M25.462 Effusion, left knee; H00.022 Hordeolum internum right lower eyelid; H00.032 Abscess of right lower eyelid; I10 Essential (primary) hypertension; J44.9 Chronic obstructive pulmonary disease, unspecified; Z98.890 Other specified postprocedural states; Z79.899 Other long term (current) drug therapy; Z88.8 Allergy status to other drugs, medicaments and biological substances; W01.0XXA Fall on same level from slipping, tripping and stumbling without subsequent striking against object, initial encounter; Y93.89 Activity, other specified; Y92.89 Other specified places as the place of occurrence of the external cause; Y99.8 Other external cause status